=== PATIENT | male | born 1930 | race Caucasian/White ===

== ENCOUNTER 2018-05-22 06:25 | Day surgery (SDC) | payer MEDICARE, BC ==
[2018-05-15 11:01] LABS: HEMATOCRIT 47.4 % (37.9-51.0); MEAN CORPUSCULAR HGB CONC 33.8 g/dL (32.0-36.0); MEAN CORPUSCULAR VOLUME 89 fl (80-97); PLATELET COUNT 195 10^3/uL (150-450); RED BLOOD COUNT 5.33 10^6/uL (4.35-5.55); WHITE BLOOD COUNT 8.4 10^3/uL (4.0-10.5)
[2018-05-15 11:14] LABS: INTERNATIONAL RATION (INR) 1.18; PROTHROMBIN TIME 15.6 SEC (11.4-15.4)
[2018-05-15 11:15] LABS: PARTIAL THROMBOPLASTIN TIME 35.4 SEC (23.5-35.8)
[2018-05-15 11:20] LABS: ALANINE AMINOTRANSFERASE 36 U/L (21-72); ALKALINE PHOSPHATASE 97 U/L (38-126); ANION GAP 8 (5-19); ASPARTATE AMINO TRANSFERASE 27 U/L (17-59); BILIRUBIN,DIRECT 0.3 mg/dL (0.0-0.4); BILIRUBIN,TOTAL 0.8 mg/dL (0.2-1.3); BLOOD UREA NITROGEN 17 mg/dL (7-20); CALCIUM 9.3 mg/dL (8.4-10.2); CARBON DIOXIDE 29 mmol/L (22-30); CHLORIDE 104 mmol/L (98-107); GLUCOSE 100 mg/dL (75-110); POTASSIUM 4.5 mmol/L (3.6-5.0); SODIUM 141.4 mmol/L (137-145); TOTAL PROTEIN 6.8 g/dL (6.3-8.2)
[~2018-05-22 06:25] MED LIST: ACETAMINOPHEN 325 MG TABLET PO PRN; CEFOXITIN SODIUM 2 GM in DEXTROSE 5%-WATER 100 ML IV PRN; LACTATED RINGERS 1000 ML IV PRN; LIDOCAINE 0.5% INJ-PF (5 MG/ML) 50 ML SDV SUBCUT PRN
[2018-05-22] MEDS ORDERED: MIDAZOLAM 2 MG/2 ML INJ ONE (06:32)
[2018-05-22] MEDS ORDERED: FENTANYL CITRATE INJ/PF 100 MCG/2 ML AMPUL ONE (06:32)
[2018-05-22] MEDS ORDERED: PROPOFOL INJ 200 MG/20 ML VIAL IV ONE (06:32)
[2018-05-22] MEDS ORDERED: HYDROMORPHONE HCL INJ/PF 2 MG/ML AMPULE ONE (06:33)
[2018-05-22] MEDS ORDERED: ACETAMINOPHEN 0 MG/0 ML RTUPB IV ONE (06:36)
[2018-05-22] MEDS ORDERED: BUPIVACAINE HCL 0.25 % INJ/PF (2.5 MG/1 ML) 30 ML VIAL ONE (07:11)
[2018-05-22 07:22] LABS: INTERNATIONAL RATION (INR) 1.09; PROTHROMBIN TIME 14.7 SEC (11.4-15.4)
[2018-05-22 07:23] LABS: PARTIAL THROMBOPLASTIN TIME 35.9 SEC (23.5-35.8)
--- NOTE | 2018-05-22 07:36 | EKG REPORT ---
SEVERITY:- ABNORMAL ECG - ATRIAL FIBRILLATION RIGHT BUNDLE BRANCH BLOCK : Confirmed by: Juan Daniel Burnett MD 22-May-2018 07:36:32
[2018-05-22] MEDS ORDERED: FENTANYL CITRATE INJ/PF 100 MCG/2 ML AMPUL IV PRN ×3 (09:18)
[2018-05-22] MEDS ORDERED: DIPHENHYDRAMINE HCL 50 MG/ML VIAL IV PRN (09:18)
[2018-05-22] MEDS ORDERED: PROMETHAZINE HCL INJ 25 MG/1 ML VIAL IV PRN (09:18)
[2018-05-22] MEDS ORDERED: ONDANSETRON HCL INJ/PF 4 MG/2 ML SDV IV PRN (09:18)
--- NOTE | 2018-05-22 09:59 | Operative Report ---
Nonrecallable Operative Report DATE OF SURGERY: 05/22/18 PREOPERATIVE DIAGNOSIS: Symptomatic cholelithiasis. POSTOPERATIVE DIAGNOSIS: Same as above OPERATION: Laparoscopic cholecystectomy SURGEON: HEIDY DE LA ROSA ANESTHESIA: GA TISSUE REMOVED OR ALTERED: Gallbladder COMPLICATIONS: None apparent ESTIMATED BLOOD LOSS: 15 cc PROCEDURE: Drains/implants: Surgicel in the gallbladder fossa. Procedure in detail: After informed consent was obtained, the patient was laid in the supine position. The area of the abdomen was prepped and draped in a normal sterile fashion. A 15 blade scalpel was used to create a supraumbilical incision. This incision was carried through the subcutaneous tissue to the abdominal wall. The cicatrix was identified, grasped with a Svetlana clamp, and retracted upwards. The linea alba fascia was incised sharply. The abdomen was entered sharply. The balloon trocar was inserted, and pneumoperitoneum was achieved. Next, a 5 mm trocar was placed in the subxiphoid position under direct laparoscopic visualization. 2 more 5 mm trochars were placed in the right upper quadrant in similar fashion. Atraumatic graspers were placed through the 5 mm trochars. The gallbladder was retracted cephalad and laterally. Dissection was begun in the triangle of Calot. The cystic duct and cystic artery were fully visualized and skeletonized, seeing the liver through the triangle. The cystic duct and cystic artery were then clipped and cut with laparoscopic instruments, after the critical view of safety was obtained. The gallbladder was removed from the liver using Bovie electrocautery. There was some oozing from the gallbladder bed. This was halted using both electrocautery and Surgicel. The hilum was then inspected. It was found to be free of any leakage of blood or bile. Once this was confirmed, the 5 mm trochars were removed under direct laparoscopic visualization. The infraumbilical trocar was removed, and pneumoperitoneum was relieved. The supraumbilical fascia was closed using 0 Vicryl suture in [id number] fashion. The overlying skin was closed using 4-0 Vicryl Rapide suture in subcuticular fashion. All sponge, instrument, and needle counts were correct 2. Condition: Stable.
--- NOTE | 2018-05-22 10:00 | Discharge Summary ---
Discharge Summary (SDC) - Discharge Final Diagnosis: Symptomatic cholelithiasis Date of Surgery: 05/22/18 Condition: Stable Treatment or Instructions: Okay to shower on Saturday. No tub baths or swimming 2 weeks. Wister 10/325 mg p.o. every 6 hours as needed pain. Referrals: NAIN SALMON MD [Primary Care Provider] - Discharge Diet: As Tolerated Respiratory Treatments at Home: Deep Breathing/Coughing, Incentive Spirometer Discharge Activity: No Lifting Over 10 Pounds Home Care Assistance: None Needed Report the Following to Your Physician Immediately: Shortness of Breath, Nausea , Vomiting, Yellow Skin, Fever over 101 Degrees, Unusual Bleeding, Swelling, Warmth
[2018-05-22] MEDS: FENTANYL CITRATE INJ/PF 100 MCG/2 ML AMPUL ONE ×2 (10:33→10:38)
[2018-05-22] MEDS ORDERED: HYDROCODONE/ACETAMINOPHEN 10-325 MG TABLET ONE (11:47)
[2018-05-22 13:42] VITALS: BP 152/86
[2018-05-22] MEDS ORDERED: SUCCINYLCHOLINE CHLORIDE INJ 200 MG/10 ML VIAL ONE (16:01)
[2018-05-22] MEDS ORDERED: GLYCOPYRROLATE 1 MG/5 ML SYRINGE ONE (16:01)
[2018-05-22] MEDS ORDERED: NEOSTIGMINE METHYLSULFATE 10 MG/10 ML VIAL ONE (16:01)
[2018-05-22] MEDS ORDERED: DEXAMETHASONE SOD PHOSPHATE INJ 4 MG/1 ML VIAL ONE (16:01)
[2018-05-22] MEDS ORDERED: ONDANSETRON HCL INJ/PF 4 MG/2 ML SDV ONE (16:01)
[2018-05-22] MEDS ORDERED: ROCURONIUM BROMIDE INJ 50 MG/5 ML VIAL IV ONE (16:01)
== END 2018-05-22 12:55 | disposition home or self-care (01) ==
LOC: OROUT 06:25
PROVIDERS: ATTEND Surgery
DX: K80.10 Calculus of gallbladder with chronic cholecystitis without obstruction (principal); I10 Essential (primary) hypertension; I48.91 Unspecified atrial fibrillation; K58.1 Irritable bowel syndrome with constipation; Z86.73 Personal history of transient ischemic attack (TIA), and cerebral infarction without residual deficits; Z85.51 Personal history of malignant neoplasm of bladder; Z79.01 Long term (current) use of anticoagulants; Z79.899 Other long term (current) drug therapy
CPT/HCPCS: 36415 ×2; 85027; 85610 ×2; 85730 ×2; 80076; 80048; 88304 ×2; 93005; 93010; 47562; J2250; J3490 ×2; J1100; J0694; J3010; J1170; J0330; J2405; J2704; A9270; 790; J0131

== ENCOUNTER → 2019-01-28 | Outpatient (CLI) | payer MEDICARE, BC ==
[2019-01-28 10:45] LABS: ABSOLUTE BASOPHILS # (AUTO) 0.1 10^3/uL (0.0-0.2); ABSOLUTE EOSINOPHILS # (AUTO) 0.3 10^3/uL (0.0-0.6); ABSOLUTE LYMPHOCYTES (AUTO) 1.6 10^3/uL (0.5-4.7); ABSOLUTE MONOCYTES (AUTO) 0.9 10^3/uL (0.1-1.4); ABSOLUTE NEUT (AUTO) 6.3 10^3/uL (1.7-8.2); BASOPHILS % (AUTO) 0.7 % (0-2); EOSINOPHILS % (AUTO) 3.6 % (0-6); HEMATOCRIT 46.4 % (37.9-51.0); HEMOGLOBIN 15.7 g/dL (13.5-17.0); LYMPHOCYTES % (AUTO) 17.7 % (13-45); MEAN CORPUSCULAR HEMOGLOBIN 30.5 pg (27.0-33.4); MEAN CORPUSCULAR HGB CONC 33.9 g/dL (32.0-36.0); MEAN CORPUSCULAR VOLUME 90 fl (80-97); MONOCYTES % (AUTO) 9.8 % (3-13); PLATELET COUNT 220 10^3/uL (150-450); RED BLOOD COUNT 5.15 10^6/uL (4.35-5.55); RED CELL DISTRIBUTION WIDTH 16.2 % (11.5-14.0); SEGMENTED NEUTROPHILS % (AUTO) 68.2 % (42-78); TOTAL CELLS COUNTED % (AUTO) 100 %; WHITE BLOOD COUNT 9.2 10^3/uL (4.0-10.5)
[2019-01-28 11:56] LABS: ALANINE AMINOTRANSFERASE 35 U/L (21-72); ALBUMIN 4.2 g/dL (3.5-5.0); ALKALINE PHOSPHATASE 102 U/L (38-126); ANION GAP 10 (5-19); ASPARTATE AMINO TRANSFERASE 23 U/L (17-59); BILIRUBIN,DIRECT 0.2 mg/dL (0.0-0.4); BLOOD UREA NITROGEN 17 mg/dL (7-20); CALCIUM 9.2 mg/dL (8.4-10.2); CARBON DIOXIDE 23 mmol/L (22-30); CHLORIDE 103 mmol/L (98-107); CHOLESTEROL 182.95 mg/dL (0-200); GLUCOSE 97 mg/dL (75-110); SODIUM 136.4 mmol/L (137-145); TOTAL PROTEIN 6.9 g/dL (6.3-8.2); TRIGLYCERIDES 93 mg/dL (<150)
[2019-01-28 12:07] LABS: DIRECT LDL 117 mg/dL (<100)
== END ==
LOC: OD 09:45
PROVIDERS: ATTEND Internal Medicine
DX: I48.0 Paroxysmal atrial fibrillation (principal); K21.9 Gastro-esophageal reflux disease without esophagitis; E78.00 Pure hypercholesterolemia, unspecified; Z79.899 Other long term (current) drug therapy
CPT/HCPCS: 36415; 80053; 80061; 85025

== ENCOUNTER → 2019-06-15 | Outpatient (CLI) | payer MEDICARE, BC | LOC: OD 12:37 | PROVIDERS: ATTEND Physician Assistant Medical | DX: I10 Essential (primary) hypertension (principal); R60.9 Edema, unspecified; R11.0 Nausea | CPT/HCPCS: 36415; 84132 ==

== ENCOUNTER → 2019-07-06 | Outpatient (CLI) | payer MEDICARE, BC ==
[2019-07-06 13:23] LABS: ABSOLUTE BASOPHILS # (AUTO) 0.1 10^3/uL (0.0-0.2); ABSOLUTE EOSINOPHILS # (AUTO) 0.3 10^3/uL (0.0-0.6); ABSOLUTE MONOCYTES (AUTO) 0.8 10^3/uL (0.1-1.4); ABSOLUTE NEUT (AUTO) 6.4 10^3/uL (1.7-8.2); BASOPHILS % (AUTO) 0.8 % (0-2); EOSINOPHILS % (AUTO) 2.9 % (0-6); HEMATOCRIT 47.8 % (37.9-51.0); HEMOGLOBIN 16.1 g/dL (13.5-17.0); LYMPHOCYTES % (AUTO) 20.6 % (13-45); MEAN CORPUSCULAR HEMOGLOBIN 28.8 pg (27.0-33.4); MEAN CORPUSCULAR HGB CONC 33.6 g/dL (32.0-36.0); MEAN CORPUSCULAR VOLUME 86 fl (80-97); MONOCYTES % (AUTO) 8.9 % (3-13); PLATELET COUNT 238 10^3/uL (150-450); RED BLOOD COUNT 5.58 10^6/uL (4.35-5.55); RED CELL DISTRIBUTION WIDTH 17.2 % (11.5-14.0); SEGMENTED NEUTROPHILS % (AUTO) 66.8 % (42-78); TOTAL CELLS COUNTED % (AUTO) 100 %; WHITE BLOOD COUNT 9.5 10^3/uL (4.0-10.5)
[2019-07-06 13:51] LABS: ANION GAP 10 (5-19); BLOOD UREA NITROGEN 23 mg/dL (7-20); CALCIUM 9.2 mg/dL (8.4-10.2); CARBON DIOXIDE 24 mmol/L (22-30); CHLORIDE 104 mmol/L (98-107); GLUCOSE 101 mg/dL (75-110); POTASSIUM 4.6 mmol/L (3.6-5.0)
== END ==
LOC: OD 12:51
PROVIDERS: ATTEND Physician Assistant Medical
DX: I10 Essential (primary) hypertension (principal); R60.9 Edema, unspecified; R11.0 Nausea
CPT/HCPCS: 36415; 80048; 85025

== ENCOUNTER 2019-08-25 06:34 | Inpatient (IN) | payer MEDICARE, BC ==
[2019-08-25 06:57] LABS: ABSOLUTE EOSINOPHILS # (AUTO) 0.1 10^3/uL (0.0-0.6); ABSOLUTE LYMPHOCYTES (AUTO) 0.9 10^3/uL (0.5-4.7); ABSOLUTE MONOCYTES (AUTO) 1.2 10^3/uL (0.1-1.4); ABSOLUTE NEUT (AUTO) 9.3 10^3/uL (1.7-8.2); BASOPHILS % (AUTO) 0.4 % (0-2); HEMATOCRIT 45.2 % (37.9-51.0); HEMOGLOBIN 14.9 g/dL (13.5-17.0); LYMPHOCYTES % (AUTO) 7.9 % (13-45); MEAN CORPUSCULAR HEMOGLOBIN 29.7 pg (27.0-33.4); MEAN CORPUSCULAR VOLUME 90 fl (80-97); MONOCYTES % (AUTO) 10.4 % (3-13); PLATELET COUNT 199 10^3/uL (150-450); RED BLOOD COUNT 5.02 10^6/uL (4.35-5.55); RED CELL DISTRIBUTION WIDTH 18.2 % (11.5-14.0); SEGMENTED NEUTROPHILS % (AUTO) 80.3 % (42-78); TOTAL CELLS COUNTED % (AUTO) 100 %; WHITE BLOOD COUNT 11.6 10^3/uL (4.0-10.5)
[2019-08-25 07:21] LABS: ALBUMIN 3.6 g/dL (3.5-5.0); ALKALINE PHOSPHATASE 84 U/L (38-126); ANION GAP 8 (5-19); ASPARTATE AMINO TRANSFERASE 28 U/L (17-59); BILIRUBIN,DIRECT 0.1 mg/dL (0.0-0.4); BLOOD UREA NITROGEN 21 mg/dL (7-20); CARBON DIOXIDE 27 mmol/L (22-30); CHLORIDE 105 mmol/L (98-107); CREATINE KINASE 53 U/L (55-170); GLUCOSE 109 mg/dL (75-110); POTASSIUM 4.8 mmol/L (3.6-5.0); TOTAL PROTEIN 6.5 g/dL (6.3-8.2)
[2019-08-25 07:32] LABS: CREATINE KINASE MB 2.46 ng/mL (<4.55)
[2019-08-25 07:36] LABS: TROPONIN I 0.049 ng/mL
--- NOTE | 2019-08-25 07:54 | EKG REPORT ---
SEVERITY:- ABNORMAL ECG - ATRIAL FIBRILLATION, V-RATE 53-82 RIGHT BUNDLE BRANCH BLOCK : Confirmed by: Juan Daniel Burnett MD 25-Aug-2019 07:53:30
--- NOTE | 2019-08-25 08:08 | ER Document Report ---
ED General - General Chief Complaint: Weakness Stated Complaint: WEAKNESS Time Seen by Provider: 08/25/19 07:50 Primary Care Provider: JASON LEE PA-C [Primary Care Provider] - Follow up as needed TRAVEL OUTSIDE OF THE [place] IN LAST 30 DAYS: No - HPI Notes: Patient is an 89-year-old male who presents to the emergency department for evaluation. Evidently he has been feeling weak. He is states that is been going on for the last few days. Patient's relative in the room states that he was so weak yesterday he could not even stand. He was even changed on the clothing he was wearing yesterday. He denies any pain. He has had some nausea but no vomiting. Normal bowel movement yesterday morning. Denies any fevers or chills. He denies feeling short of breath at this time. Urinating normally. - Related Data Allergies/Adverse Reactions: No Known Allergies Allergy (Verified 08/25/19 06:37) Past Medical History - General Information source: Patient, Relative - Social History Smoking Status: Former Smoker Chew tobacco use (# tins/day): No Frequency of alcohol use: None Drug Abuse: None Family History: Reviewed & Not Pertinent Patient has suicidal ideation: No Patient has homicidal ideation: No - Past Medical History Cardiac Medical History: Reports: Hx Atrial Fibrillation, Hx Hypertension Denies: Hx Coronary Artery Disease, Hx Heart Attack Pulmonary Medical History: Denies: Hx Asthma, Hx Bronchitis, Hx COPD, Hx Pneumonia Neurological Medical History: Reports: Hx Cerebrovascular Accident - SOME LEFT SIDED DEFICITS. Denies: Hx Seizures GI Medical History: Reports: Hx Gastroesophageal Reflux Disease, Hx Hiatal Hernia. Denies: Hx Hepatitis Musculoskeletal Medical History: Reports Hx Arthritis Psychiatric Medical History: Denies: Hx Depression Infectious Medical History: Denies: Hx Hepatitis Past Surgical History: Reports: Hx Cholecystectomy, Hx Genitourinary Surgery, Hx Tonsillectomy. Denies: Hx Open Heart Surgery, Hx Pacemaker - Immunizations Hx Diphtheria, Pertussis, Tetanus Vaccination: Yes Hx Pneumococcal Vaccination: 08/18/12 Review of Systems - Review of Systems Constitutional: See HPI EENT: No symptoms reported Cardiovascular: No symptoms reported Respiratory: No symptoms reported Gastrointestinal: See HPI Genitourinary: No symptoms reported Musculoskeletal: No symptoms reported Skin: No symptoms reported Neurological/Psychological: No symptoms reported Physical Exam - Vital signs Vitals: Temp Pulse Resp BP Pulse Ox 97.7 F 70 26 H 158/90 H 91 L 08/25/19 06:37 08/25/19 06:37 08/25/19 06:37 08/25/19 06:37 08/25/19 06:37 - Notes Notes: This is an 89-year-old male, appears his stated age. He is mildly tachypneic. Vital signs reviewed, please refer to chart. Head is normocephalic, atraumatic. Pupils equal round, reactive to light. Neck is supple without meningismus. Heart is irregularly irregular. Lungs are clear to auscultation bilaterally. Abdomen is soft, nontender, normoactive bowel sounds throughout. Extremities without cyanosis, clubbing. 1+ pitting edema pretibially bilaterally. Posterior calves are nontender. Peripheral pulses are equal. Skin is warm and dry. Patient is awake, alert, oriented x3. Cranial nerves II - XII are grossly intact without focal neurological deficits. Strength is plus 4 out of 5 right upper and lower extremities, 3 out of 5 on the left. Sensation is intact. Reflexes mildly hyperactive on the left. Intact [id number], rapid alternating movements. Course - Re-evaluation Re-evalutation: 08/25/19 12:46 Patient presented to the emergency department for evaluation. On initial assessment he was mildly tachypneic, but his lungs are clear. Multiple laboratory investigations were added, as well as chest x-ray. Chest x-ray was just a portable film, did not show anything acute. His proBNP is elevated at nearly 6000. His work of breathing continue to increase, patient was started on BiPAP. He had significant relief with that. Given his constellation of findings, I do highly suspect CHF as the etiology of his symptoms. His initial troponin was 0.04, I did increase. The patient has remained chest pain-free, and again his symptoms are feeling improved. He is already on a blood thinner. He had a Menendez catheter placed as per patient's daughter's request, as he does have mobility issues secondary to his CVA. I spoke with Dr. Green, then Dr. Barajas, patient will be admitted for further care. - Vital Signs Vital signs: Temp Pulse Resp BP Pulse Ox 97.7 F 70 34 H 150/97 H 98 08/25/19 06:37 08/25/19 06:48 08/25/19 08:30 08/25/19 06:48 08/25/19 08:30 - Laboratory Result Diagrams: 08/25/19 06:40 08/25/19 06:40 Laboratory results interpreted by me: 08/25/19 08/25/19 08/25/19 06:40 06:40 06:40 WBC 11.6 H RDW 18.2 H Lymph % (Auto) 7.9 L Absolute Neuts (auto) 9.3 H Seg Neutrophils % 80.3 H Carbonic Acid ABG pH ABG pCO2 ABG pO2 ABG Total CO2 ABG O2 Saturation BUN 21 H Creatine Kinase 53 L NT-Pro-B Natriuret Pep 5950 H TSH Urine Protein Urine Ascorbic Acid 08/25/19 08/25/19 08/25/19 06:40 09:00 10:55 WBC RDW Lymph % (Auto) Absolute Neuts (auto) Seg Neutrophils % Carbonic Acid 0.93 L ABG pH 7.46 H ABG pCO2 31.0 L ABG pO2 105.4 H ABG Total CO2 22.3 L ABG O2 Saturation 98.1 H BUN Creatine Kinase NT-Pro-B Natriuret Pep TSH 5.80 H Urine Protein 30 H Urine Ascorbic Acid 40 H - Diagnostic Test Radiology reviewed: Image reviewed, Reports reviewed Radiology results interpreted by me: 08/25/19 12:47 Chest X-Ray 08/25/19 07:51 IMPRESSION: Cardiomegaly without a superimposed acute cardiopulmonary process. - EKG Interpretation by Me Additional EKG results interpreted by me: 08/25/19 12:47 Atrial fibrillation with a rate of 67 bpm. Right bundle branch block. No change when compared to prior study. Critical Care Note - Critical Care Note Total time excluding time spent on procedures (mins): 25 Discharge - Discharge Clinical Impression: Congestive heart failure (CHF), Dyspnea Condition: Stable Disposition: ADMITTED INPATIENT Admitting Provider: Karl (Hospitalist) Unit Admitted: IMCU Referrals: JASON LEE PA-C [Primary Care Provider] - Follow up as needed
--- NOTE | 2019-08-25 08:48 | RADIOLOGY REPORT (SQ) ---
EXAM DESCRIPTION: CHEST SINGLE VIEW COMPLETED DATE/TIME: 08/25/2019 8:36 am REASON FOR STUDY: dyspnea on exertion, weakness COMPARISON: AP view of the chest from 10/03/2013. EXAM PARAMETERS: NUMBER OF VIEWS: One view. TECHNIQUE: Single frontal radiographic view of the chest acquired. RADIATION DOSE: NA LIMITATIONS: None. FINDINGS: LUNGS AND PLEURA: Right basilar atelectasis. There is no sizable pleural effusion, consol idation or pneumothorax MEDIASTINUM AND HILAR STRUCTURES: The thoracic aorta is unfolded. HEART AND VASCULAR STRUCTURES: The cardiac silhouette is enlarged. The pulmonary vasculature is with in normal limits. BONES: No acute findings. HARDWARE: None in the chest. OTHER: No other finding. IMPRESSION: Cardiomegaly without a superimposed acute cardiopulmonary process. TECHNICAL DOCUMENTATION: JOB ID: [id number] [employer]- All Rights Reserved Reading location - IP/workstation name: [email or web address]
[2019-08-25 09:21] LABS: ARTERIAL BLOOD BASE EXCESS -1.6 mmol/L; ARTERIAL BLOOD FIO2 2L; ARTERIAL BLOOD H2CO3 0.93 mmol/L (1.05-1.35); ARTERIAL BLOOD HCO3 21.3 mmol/L (20-24); ARTERIAL BLOOD O2 SATURATION 98.1 % (94-98); ARTERIAL BLOOD PH 7.46 (7.35-7.45); ARTERIAL BLOOD PO2 105.4 mmHg (80-100); ARTERIAL BLOOD TOTAL CO2 22.3 mmol/L (23-27)
[2019-08-25] MEDS ORDERED: FUROSEMIDE INJ/PF 20 MG/2 ML SDV IV ONE (10:12)
[2019-08-25 11:50] LABS: APPEARANCE,URINE CLEAR; BILIRUBIN,URINE NEGATIVE (NEGATIVE); COLOR,URINE YELLOW; GLUCOSE, URINE NEGATIVE (NEGATIVE); KETONES,URINE NEGATIVE (NEGATIVE); LEUKOCYTE ESTERASE,URINE NEGATIVE (NEGATIVE); NITRITE,URINE NEGATIVE (NEGATIVE); PROTEIN,URINE 30 mg/dL (NEGATIVE); URINE SPECIFIC GRAVITY 1.012; UROBILINOGEN,URINE NEGATIVE mg/dL (<2.0)
[2019-08-25] MEDS ORDERED: ACETAMINOPHEN 325 MG TABLET PO PRN (15:10)
[2019-08-25] MEDS ORDERED: OXYCODONE-ACETAMINOPHEN 5-325 MG TABLET PO PRN (15:10)
[2019-08-25] MEDS ORDERED: TEMAZEPAM 7.5 MG CAPSULE PO PRN (15:10)
[2019-08-25] MEDS ORDERED: ONDANSETRON HCL INJ/PF 4 MG/2 ML SDV IV PRN (15:10)
[2019-08-25] MEDS ORDERED: (PENDING PHARMACY ID) (Lisinopril [Prinivil 40 Mg Tablet] 20 MG) PO SCH (15:20)
[2019-08-25] MEDS ORDERED: LISINOPRIL 10 MG TABLET PO ONE (15:30)
[2019-08-25] MEDS: LEVALBUTEROL HCL NEB 1.25 MG/3 ML AMPUL NEB SCH ×3 (16:28→23:56)
[2019-08-25] MEDS: AZITHROMYCIN 250 MG TABLET PO SCH (16:28)
--- NOTE | 2019-08-25 16:36 | RADIOLOGY REPORT (SQ) ---
EXAM DESCRIPTION: CTA CHEST COMPLETED DATE/TIME: 08/25/2019 4:17 pm REASON FOR STUDY: acute respiratory failure COMPARISON: None. TECHNIQUE: CT scan of the chest performed using helical scanning technique with dynamic intravenous contrast injection. Images reviewed with lung, soft tissue and bone windows. Reconstructed coronal and sagittal MPR images reviewed. Additional 3 dimensional post-processing performed to develop Maximal Intensity Projection images (VT P). All images stored on PACS. All CT scanners at this facility use dose modulation, iterative reconstruction, and/or weight based d osing when appropriate to reduce radiation dose to as low as reasonably achievable (ALARA). [facility]: Dose Right [facility]: CareDose [facility]: Dose Right [facility]: Teradose 4D [facility]: [email or web address] CONTRAST TYPE AND DOSE: Ccontrast/concentration: Isovue 350.00 mg/ml; Total Contrast Delivered: 71.0 ml; Total Saline Delivered: 68.1 ml Contrast bolus optimized for the pulmonary arteries. Not diagnostic for the aorta. RENAL FUNCTION: Creatinine 1.04 mg / dL. RADIATION DOSE: CT Rad equipment meets quality standard of care and radiation dose reduction techniq ues were employed. CTDIvol: 34.8 - 39.7 mGy. DLP: 1452 mGy-cm. . LIMITATIONS: None. FINDINGS: LUNGS AND PLEURA: The trachea and main bronchi are patent. There is a small right pleural effusion and there are calcified bilateral pleural plaques. The ovoid opacity in the right lower lo be, adjacent to the pleural surface, is nonspecific but could represent an infarct or an area of roun d atelectasis. There is a trace amount of free AORTA AND GREAT VESSELS: Evaluation is limited as the contrast bolus was optimized for evaluation of the pulmonary arteries. There is no thoracic aortic dissection or aneurysmal dilate station. HEART: There is cardiomegaly and mild to moderate atherosclerotic calcification of the coronary arter ies and mitral annulus. There is no pericardial effusion. PULMONARY ARTERIES: There are filling defects within the right and left pulmonary arteries and proxim al segmental branches to the right upper, right lower, right middle, left upper and left lower lobes. The intervertebral a septum is flattened and there is reflux of the contrast into the IVC. HILAR AND MEDIASTINAL STRUCTURES: No mass or adenopathy. HARDWARE: None in the chest. UPPER ABDOMEN: Round hypodense lesion in the posterior inferior aspect of the right hepatic lobe that measures approximately 2.5 cm in diameter. The gallbladder is surgically absent. The spleen is nor mal in size. There is an accessory splenium in the region of the ON. There is no abnormality of the pancreas. There is mild diffuse nodular enlargement of the adrenal glands could represent nodular h yperplasia. THYROID AND OTHER SOFT TISSUES: No masses or adenopathy. 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 3D MIPS: Confirm above findings. OTHER: No other finding. IMPRESSION: 1. Acute bilateral pulmonary emboli that involve both the right and left pulmonary maicol ronna and proximal segmental branches to the right upper, right lower, right middle, and left upper an d left lower lobes. In addition, there is evidence of right heart strain based on the flattened appe arance of the interventricular septum and the reflux of the contrast into the IVC. 2. Ovoid opacity in the right lower lobe, adjacent to the pleural surface is nonspecific and could r epresent an infarct or and area of round atelectasis. Attention on follow-up is recommended. 3. Small right pleural effusion and calcified bilateral pleural plaques COMMENT: This report was called to NISHA CASEY MD at16:20 on 08/25/2019. Quality ID # [id number]: Final reports with documentation of one or more dose reduction techniques (e.g., Au tomated exposure control, adjustment of the mA and/or kV according to patient size, use of iterative reconstruction technique) TECHNICAL DOCUMENTATION: JOB ID: [id number] [employer]- All Rights Reserved Reading location - IP/workstation name: [email or web address]
[2019-08-25 17:40] LABS: ANION GAP 8 (5-19); BLOOD UREA NITROGEN 20 mg/dL (7-20); CALCIUM 8.9 mg/dL (8.4-10.2); CARBON DIOXIDE 28 mmol/L (22-30); CHLORIDE 102 mmol/L (98-107); GLUCOSE 116 mg/dL (75-110); POTASSIUM 4.6 mmol/L (3.6-5.0)
[2019-08-25 17:57] LABS: FREE T3 3.7 pg/mL (2.77-5.27); FREE T4 (FREE THYROXINE) 1.39 ng/dL (0.78-2.19)
[2019-08-25] MEDS ORDERED: CYANOCOBALAMIN 6000 MCG SL SCH (18:00)
[2019-08-25] MEDS ORDERED: APIXABAN 5 MG TABLET PO SCH (18:00)
[2019-08-25] MEDS: ENOXAPARIN SODIUM INJ 120 MG/0.8 ML DISP.SYRIN SUBCUT SCH (18:40)
[2019-08-25] MEDS ORDERED: ENOXAPARIN SODIUM INJ 120 MG/0.8 ML DISP.SYRIN SUBCUT ONE (18:41)
[2019-08-25] MEDS: MEGESTROL ACETATE 20 MG TABLET PO SCH (18:43)
[2019-08-25] MEDS: PANTOPRAZOLE SODIUM 40 MG TABLET.DR PO SCH (18:43)
[2019-08-25] MEDS: DOCUSATE SODIUM 100 MG CAPSULE PO SCH (18:43)
[2019-08-25] MEDS ORDERED: HYDRALAZINE HCL INJ/PF 20 MG/1 ML SDV IV PRN (19:41)
--- NOTE | 2019-08-25 19:55 | PDOC H&P ---
History of Present Illness Admission Date/PCP: 08/25/19 12:54 JASON LEE PA-C History of Present Illness: JAGRUTI SHEPHERD is a 89 year old male PE on Xarelto, hypertension, bladder cancer, right MCA CVA, dyslipidemia, A. fib, brought to ED by family for evaluation of worsening weakness and dyspnea on exertion. As per family for the last 3 days they have noted this patient has getting progressively weak and short of breath on minimal exertion, denies any PND, orthopnea, or lower extremity edema, In ED he was found to be hypoxic, with elevated BNP hospital was started for acute heart failure. Evaluation CTA chest showed bilateral multiple acute pulmonary emboli with right heart strain based on CT findings. Patient denies any cough, fever, chills, nausea, vomiting, diarrhea, co nstipation or any urinary symptoms. Patient has decided for his CODE STATUS to be DNR and daughter and son-in-law who are accompanying him agree with his decision. Patient and family were updated about acute bilateral pulmonary PE and they do not want any transfer at this point as patient is DNR and he may not get any invasive procedures if transfer. They would like to continue medical management at this point. Past Medical History Cardiac Medical History: Reports: Atrial Fibrillation, Hypertension Denies: Coronary Artery Disease, Myocardial Infarction Pulmonary Medical History: Denies: Asthma, Bronchitis, Chronic Obstructive Pulmonary Disease (COPD), Pneumonia Neurological Medical History: Denies: Seizures GI Medical History: Reports: Gastroesophageal Reflux Disease, Hiatal Hernia Denies: Hepatitis Musculoskeltal Medical History: Reports: Arthritis Psychiatric Medical History: Denies: Depression Hematology: Denies: Anemia, Sickle Cell Disease Past Surgical History Past Surgical History: Reports: Cholecystectomy, Tonsillectomy Denies: Pacemaker Social History Smoking Status: Former Smoker Electronic Cigarette use?: No Frequency of Alcohol Use: None Hx Recreational Drug Use: No Hx Prescription Drug Abuse: No Family History Family History: Reviewed & Not Pertinent Parental Family History Reviewed: Yes Children Family History Reviewed: Yes Sibling(s) Family History Reviewed.: Yes Medication/Allergy Home Medications: Apixaban [Eliquis 5 mg Tablet] 5 mg PO BID 02/11/15 Simvastatin 10 mg PO QHS 02/11/15 Cetirizine HCl [Cetirizine HCl 5 mg/5 mL] 5 mg PO BID 08/25/19 Clonidine HCl [Catapres] 0.1 mg PO TIDP PRN 08/25/19 Cyanocobalamin (Vitamin B-12) [B-12] 6,000 mcg SL BID 08/25/19 Esomeprazole Mag Trihydrate [Nexium] 40 mg PO DAILY 08/25/19 Hydralazine HCl [Apresoline 25 mg Tablet] 25 mg PO BID 08/25/19 Lisinopril [Prinivil 40 mg Tablet] 40 mg PO DAILY 08/25/19 Megestrol Acetate [Megace 20 Mg Tablet] 20 mg PO BID 08/25/19 Potassium Gluconate [Potassium] 600 mg PO QID 08/25/19 Promethazine HCl [Phenergan 25 mg Tablet] 25 mg PO ASDIR PRN 08/25/19 Allergies/Adverse Reactions: No Known Allergies Allergy (Verified 08/25/19 06:37) Review of Systems Review of Systems: as per hpi Physical Exam Vital Signs: Temp Pulse Resp BP Pulse Ox 97.7 F 72 15 172/111 H 96 08/25/19 06:37 08/25/19 16:37 08/25/19 19:01 08/25/19 19:01 08/25/19 19:01 Intake & Output 08/24/19 08/25/19 08/26/19 06:59 06:59 06:59 Weight 109.1 kg General appearance: PRESENT: mild distress, obese Head exam: PRESENT: atraumatic, normocephalic Respiratory exam: PRESENT: clear to auscultation jose, symmetrical, tachypnea. ABSENT: rales, rhonchi, wheezes Cardiovascular exam: PRESENT: irregular rhythm. ABSENT: diastolic murmur, rubs, systolic murmur GI/Abdominal exam: PRESENT: normal bowel sounds, soft. ABSENT: distended, guarding, mass, organolmegaly, rebound, tenderness Neurological exam: PRESENT: alert, awake, oriented to person, oriented to place, oriented to time, oriented to situation, CN II-XII grossly intact. ABSENT: motor sensory deficit Results Laboratory Results: 08/25/19 06:40 08/25/19 17:04 08/25/19 08/25/19 08/25/19 06:40 06:40 06:40 WBC 11.6 H RBC 5.02 Hgb 14.9 Hct 45.2 MCV 90 MCH 29.7 MCHC 33.0 RDW 18.2 H Plt Count 199 Seg Neutrophils % 80.3 H Carbonic Acid HCO3/H2CO3 Ratio ABG pH ABG pCO2 ABG pO2 ABG HCO3 ABG O2 Saturation ABG Base Excess FiO2 Sodium 139.8 Potassium 4.8 Chloride 105 Carbon Dioxide 27 Anion Gap 8 BUN 21 H Creatinine 1.04 Est GFR ( Amer) > 60 Glucose 109 Calcium 9.0 Total Bilirubin 1.0 AST 28 Alkaline Phosphatase 84 Total Protein 6.5 Albumin 3.6 TSH 5.80 H Free T4 Free T3 pg/mL Urine Color Urine Appearance Urine pH Ur Specific [place] Urine Protein Urine Glucose (UA) Urine Ketones Urine Blood Urine Nitrite Ur Leukocyte Esterase Urine WBC (Auto) Urine RBC (Auto) 08/25/19 08/25/19 08/25/19 09:00 10:55 17:04 WBC RBC Hgb Hct MCV MCH MCHC RDW Plt Count Seg Neutrophils % Carbonic Acid 0.93 L HCO3/H2CO3 Ratio 22:1 ABG pH 7.46 H ABG pCO2 31.0 L ABG pO2 105.4 H ABG HCO3 21.3 ABG O2 Saturation 98.1 H ABG Base Excess -1.6 FiO2 2L Sodium Potassium Chloride Carbon Dioxide Anion Gap BUN Creatinine Est GFR ( Amer) Glucose Calcium Total Bilirubin AST Alkaline Phosphatase Total Protein Albumin TSH Free T4 1.39 Free T3 pg/mL 3.70 Urine Color YELLOW Urine Appearance CLEAR Urine pH 6.0 Ur Specific [place] 1.012 Urine Protein 30 H Urine Glucose (UA) NEGATIVE Urine Ketones NEGATIVE Urine Blood NEGATIVE Urine Nitrite NEGATIVE Ur Leukocyte Esterase NEGATIVE Urine WBC (Auto) 2 Urine RBC (Auto) 4 08/25/19 17:04 WBC RBC Hgb Hct MCV MCH MCHC RDW Plt Count Seg Neutrophils % Carbonic Acid HCO3/H2CO3 Ratio ABG pH ABG pCO2 ABG pO2 ABG HCO3 ABG O2 Saturation ABG Base Excess FiO2 Sodium 138.2 Potassium 4.6 Chloride 102 Carbon Dioxide 28 Anion Gap 8 BUN 20 Creatinine 1.07 Est GFR ( Amer) > 60 Glucose 116 H Calcium 8.9 Total Bilirubin AST Alkaline Phosphatase Total Protein Albumin TSH Free T4 Free T3 pg/mL Urine Color Urine Appearance Urine pH Ur Specific [place] Urine Protein Urine Glucose (UA) Urine Ketones Urine Blood Urine Nitrite Ur Leukocyte Esterase Urine WBC (Auto) Urine RBC (Auto) 08/25/19 08/25/1919 06:40 06:40 06:40 Creatine Kinase 53 L CK-MB (CK-2) 2.46 Troponin I 0.049 NT-Pro-B Natriuret Pep 5950 H 08/25/19 08/25/19 10:26 17:04 Creatine Kinase CK-MB (CK-2) Troponin I 0.069 0.046 NT-Pro-B Natriuret Pep Impressions: Chest X-Ray 08/25/19 07:51 IMPRESSION: Cardiomegaly without a superimposed acute cardiopulmonary process. Chest/Abdomen CTA 08/25/19 15:21 IMPRESSION: 1. Acute bilateral pulmonary emboli that involve both the right and left pulmonary arteries and proximal segmental branches to the right upper, right lower, right middle, and left upper and left lower lobes. In addition, there is evidence of right heart strain based on the flattened appearance of the interventricular septum and the reflux of the contrast into the IVC. 2. Ovoid opacity in the right lower lobe, adjacent to the pleural surface is nonspecific and could represent an infarct or and area of round atelectasis. Attention on follow-up is recommended. 3. Small right pleural effusion and calcified bilateral pleural plaques Assessment and Plan - Diagnosis (1) Acute pulmonary embolism with acute cor pulmonale Qualifiers: Pulmonary embolism type: unspecified Qualified Code(s): I26.09 - Other pu lmonary embolism with acute cor pulmonale Is this a current diagnosis for this admission?: Yes Plan: History of PE, used to be on Coumadin was switched to Xarelto. Currently on Xarelto 5 mg p.o. twice daily, reports compliance. CTA chest positive for multiple bilateral acute PEs, with possible right heart strain based on CT findings. Patient is DNR, does not want any invasive interventions at this point. Admit to IMCU, monitor vitals, therapeutic dose Lovenox, DC Xarelto, 2D echo. Acute PE in the setting of history of bladder cancer and being on Xarelto. Consult oncology to see if acute PE is related to history of bladder cancer or failure to Xarelto. (2) Acute and chronic respiratory failure with hypoxia Is this a current diagnosis for this admission?: Yes Plan: Due to acute PE and acute CHF. Plan as #1 and #3. (3) Acute congestive heart failure Qualifiers: Heart failure type: combined systolic and diastolic Qualified Code(s): I50.41 - Acute combined systolic (congestive) and diastolic (congestive) heart failure Is this a current diagnosis for this admission?: Yes Plan: Denies any history of CAD, denies any chest pain, mildly elevated troponins likely due to acute PE causing acute CHF. Admit to telemetry, IV Lasix, volume restriction, DARNELL inhibitors, trend troponins, 2D echo. Hold beta-rosamaria due to acute CHF exacerbation, could be restarted tomorrow if stable. (4) History of bladder cancer Is this a current diagnosis for this admission?: Yes Plan: Status post surgery. Not on chemotherapy. Outpatient PCP and oncology follow- up. (5) Hypertension Qualifiers: Hypertension type: essential hypertension Qualified Code(s): I10 - Essential (primary) hypertension Is this a current diagnosis for this admission?: Yes Plan: Not optimized, likely exacerbated due to acute PE and CHF. Continue IV Lasix, DARNELL, IV PRN hydralazine. Adjust meds as needed, follow-up with PCP as outpatient. 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 Weakness. Denies any acute focal neurological deficit. Optimize blood pressure, continue antiplatelets, continue statins.
[2019-08-25] MEDS: SIMVASTATIN 10 MG TABLET PO SCH (22:51)
[2019-08-25] MEDS: FUROSEMIDE INJ/PF 20 MG/2 ML SDV IV SCH (22:52)
[2019-08-26] MEDS: LEVALBUTEROL HCL NEB 1.25 MG/3 ML AMPUL NEB SCH ×6 (04:13→23:54)
[2019-08-26 04:58] LABS: ABSOLUTE BASOPHILS # (AUTO) 0.1 10^3/uL (0.0-0.2); ABSOLUTE EOSINOPHILS # (AUTO) 0.1 10^3/uL (0.0-0.6); ABSOLUTE LYMPHOCYTES (AUTO) 1.3 10^3/uL (0.5-4.7); ABSOLUTE MONOCYTES (AUTO) 1.2 10^3/uL (0.1-1.4); ABSOLUTE NEUT (AUTO) 9.5 10^3/uL (1.7-8.2); BASOPHILS % (AUTO) 0.5 % (0-2); EOSINOPHILS % (AUTO) 1.2 % (0-6); HEMATOCRIT 42.8 % (37.9-51.0); HEMOGLOBIN 14.1 g/dL (13.5-17.0); LYMPHOCYTES % (AUTO) 10.6 % (13-45); MEAN CORPUSCULAR HEMOGLOBIN 29.4 pg (27.0-33.4); MEAN CORPUSCULAR VOLUME 89 fl (80-97); MONOCYTES % (AUTO) 10.1 % (3-13); PLATELET COUNT 207 10^3/uL (150-450); RED BLOOD COUNT 4.81 10^6/uL (4.35-5.55); RED CELL DISTRIBUTION WIDTH 18.1 % (11.5-14.0); SEGMENTED NEUTROPHILS % (AUTO) 77.6 % (42-78); TOTAL CELLS COUNTED % (AUTO) 100 %; WHITE BLOOD COUNT 12.2 10^3/uL (4.0-10.5)
[2019-08-26 05:06] LABS: INTERNATIONAL RATION (INR) 1.29; PROTHROMBIN TIME 16.2 SEC (11.4-15.4)
[2019-08-26] MEDS: PANTOPRAZOLE SODIUM 40 MG TABLET.DR PO SCH ×2 (06:07→16:15)
[2019-08-26 08:26] LABS: APPEARANCE,URINE CLEAR; BILIRUBIN,URINE NEGATIVE (NEGATIVE); COLOR,URINE YELLOW; GLUCOSE, URINE NEGATIVE (NEGATIVE); KETONES,URINE TRACE mg/dL (NEGATIVE); LEUKOCYTE ESTERASE,URINE TRACE (NEGATIVE); NITRITE,URINE NEGATIVE (NEGATIVE); PROTEIN,URINE 30 mg/dL (NEGATIVE); URINE SPECIFIC GRAVITY 1.021; UROBILINOGEN,URINE NEGATIVE mg/dL (<2.0)
--- NOTE | 2019-08-26 10:27 | PDOC CONSULTATION ---
Consultation Consult Date: 08/26/19 Provider Consulted: LETICIA POLLOCK Consult reason:: Hematology/Oncology consultation was requested for patient with history of bladder cancer and new bilateral PE while on Eliquis therapy. History of Present Illness Admission Date/PCP: 08/25/19 12:54 JASON LEE PA-C History of Present Illness: JAGRUTI SHEPHERD is a 89 year old male with a remote history of bladder cancer. He was initially started on coumadin many years ago due to PE as well as chronic A-fib. This was changed to Xarelto, and then Eliquis over a year ago. He states that he has not missed any doses of the Eliquis and has had no bleeding or clotting issues that he is aware of. However, patient presented to the ED with dizziness, weakness and nausea. He denies any chest pain. He has dyspnea on exertion. All symptoms have been getting worse over the last week. He was found in the ED to have new bilateral PEs. His Eliquis has now been stopped and patient was started on Lovenox. Past Medical History Cardiac Medical History: Reports: Atrial Fibrillation, Hypertension Denies: Coronary Artery Disease, Myocardial Infarction Pulmonary Medical History: Denies: Asthma, Bronchitis, Chronic Obstructive Pulmonary Disease (COPD), Pneumonia Neurological Medical History: Denies: Seizures GI Medical History: Reports: Gastroesophageal Reflux Disease, Hiatal Hernia Denies: Hepatitis Musculoskeltal Medical History: Reports: Arthritis Psychiatric Medical History: Denies: Depression Hematology: Denies: Anemia, Sickle Cell Disease Past Surgical History Past Surgical History: Reports: Cholecystectomy, Tonsillectomy Denies: Pacemaker Social History Smoking Status: Unknown if Ever Smoked Electronic Cigarette use?: No Frequency of Alcohol Use: None Hx Recreational Drug Use: No Hx Prescription Drug Abuse: No Past Social History Note: He is , lives with daughter. 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 He has 2 children, and a "bunch of grandchildren." - Advance Directive Resuscitation Status: Do Not Resuscitate Family History Parental Family History Reviewed: Yes - Mother with blood clot. Father with kidney failure. Children Family History Reviewed: No Sibling(s) Family History Reviewed.: Yes - Sister with breast cancer. Medication/Allergy Home Medications: Apixaban [Eliquis 5 mg Tablet] 5 mg PO BID 02/11/15 Simvastatin 10 mg PO QHS 02/11/15 Cetirizine HCl [Cetirizine HCl 5 mg/5 mL] 5 mg PO BID 08/25/19 Clonidine HCl [Catapres] 0.1 mg PO TIDP PRN 08/25/19 Cyanocobalamin (Vitamin B-12) [B-12] 6,000 mcg SL BID 08/25/19 Esomeprazole Mag Trihydrate [Nexium] 40 mg PO DAILY 08/25/19 Hydralazine HCl [Apresoline 25 mg Tablet] 25 mg PO BID 08/25/19 Lisinopril [Prinivil 40 mg Tablet] 40 mg PO DAILY 08/25/19 Megestrol Acetate [Megace 20 Mg Tablet] 20 mg PO BID 08/25/19 Potassium Gluconate [Potassium] 600 mg PO QID 08/25/19 Promethazine HCl [Phenergan 25 mg Tablet] 25 mg PO ASDIR PRN 08/25/19 Allergies/Adverse Reactions: No Known Allergies Allergy (Verified 08/25/19 06:37) Review of Systems Constitutional: ABSENT: fever(s), headache(s) Eyes: ABSENT: visual disturbances Ears: ABSENT: hearing changes Nose, Mouth, and Throat: ABSENT: sore throat Cardiovascular: PRESENT: dyspnea on exertion. ABSENT: chest pain Respiratory: PRESENT: dyspnea Gastrointestinal: PRESENT: nausea. ABSENT: abdominal pain Genitourinary: ABSENT: dysuria, hematuria Musculoskeletal: ABSENT: back pain Integumentary: ABSENT: rash Neurological: PRESENT: dizziness, weakness Hematologic/Lymphatic: ABSENT: easy bleeding Physical Exam Vital Signs: Temp Pulse Resp BP Pulse Ox 97.4 F 80 16 150/93 H 89 L 08/26/19 03:00 08/26/19 07:49 08/26/19 07:49 08/26/19 03:00 08/26/19 07:49 Intake & Output 08/25/19 08/26/19 08/27/19 06:59 06:59 06:59 Output Total 2700 Balance -2700 Weight 109.1 kg 105 kg General appearance: PRESENT: no acute distress, well-developed, well-nourished Head exam: PRESENT: normocephalic Eye exam: PRESENT: EOMI Neck exam: ABSENT: lymphadenopathy, tenderness Respiratory exam: PRESENT: clear to auscultation jose Cardiovascular exam: PRESENT: RRR GI/Abdominal exam: PRESENT: soft. ABSENT: tenderness Extremities exam: PRESENT: other - Patient states his left leg is always bigger than his right since his CVA.. ABSENT: pedal edema Musculoskeletal exam: PRESENT: normal inspection Neurological exam: PRESENT: alert, awake Psychiatric exam: PRESENT: appropriate affect Skin exam: PRESENT: normal color Results Laboratory Results: 08/26/19 03:47 08/25/19 17:04 08/25/19 08/25/19 08/25/19 10:55 17:04 17:04 WBC RBC Hgb Hct MCV MCH MCHC RDW Plt Count Seg Neutrophils % Sodium 138.2 Potassium 4.6 Chloride 102 Carbon Dioxide 28 Anion Gap 8 BUN 20 Creatinine 1.07 Est GFR ( Amer) > 60 Glucose 116 H Calcium 8.9 Free T4 1.39 Free T3 pg/mL 3.70 Urine Color YELLOW Urine Appearance CLEAR Urine pH 6.0 Ur Specific [place] 1.012 Urine Protein 30 H Urine Glucose (UA) NEGATIVE Urine Ketones NEGATIVE Urine Blood NEGATIVE Urine Nitrite NEGATIVE Ur Leukocyte Esterase NEGATIVE Urine WBC (Auto) 2 Urine RBC (Auto) 4 08/26/19 08/26/19 03:47 07:50 WBC 12.2 H RBC 4.81 Hgb 14.1 Hct 42.8 MCV 89 MCH 29.4 MCHC 33.0 RDW 18.1 H Plt Count 207 Seg Neutrophils % 77.6 Sodium Potassium Chloride Carbon Dioxide Anion Gap BUN Creatinine Est GFR ( Amer) Glucose Calcium Free T4 Free T3 pg/mL Urine Color YELLOW Urine Appearance CLEAR Urine pH 6.0 Ur Specific [place] 1.021 Urine Protein 30 H Urine Glucose (UA) NEGATIVE Urine Ketones TRACE H Urine Blood LARGE H Urine Nitrite NEGATIVE Ur Leukocyte Esterase TRACE H Urine WBC (Auto) 17 Urine RBC (Auto) 114 08/25/19 08/25/19 08/25/19 06:40 06:40 06:40 Creatine Kinase 53 L CK-MB (CK-2) 2.46 Troponin I 0.049 NT-Pro-B Natriuret Pep 5950 H 08/25/19 08/25/19 08/25/19 10:26 17:04 21:44 Creatine Kinase CK-MB (CK-2) Troponin I 0.069 0.046 0.037 NT-Pro-B Natriuret Pep 08/26/19 03:47 Creatine Kinase CK-MB (CK-2) Troponin I 0.035 NT-Pro-B Natriuret Pep Impressions: Chest X-Ray 08/25/19 07:51 IMPRESSION: Cardiomegaly without a superimposed acute cardiopulmonary process. Chest/Abdomen CTA 08/25/19 15:21 IMPRESSION: 1. Acute bilateral pulmonary emboli that involve both the right and left pulmonary arteries and proximal segmental branches to the right upper, right lower, right middle, and left upper and left lower lobes. In addition, there is evidence of right heart strain based on the flattened appearance of the interventricular septum and the reflux of the contrast into the IVC. 2. Ovoid opacity in the right lower lobe, adjacent to the pleural surface is nonspecific and could represent an infarct or and area of round atelectasis. Attention on follow-up is recommended. 3. Small right pleural effusion and calcified bilateral pleural plaques Assessment & Plan - Diagnosis (1) Acute pulmonary embolism with acute cor pulmonale Qualifiers: Pulmonary embolism type: unspecified Qualified Code(s): I26.09 - Other pulm onary embolism with acute cor pulmonale Is this a current diagnosis for this admission?: Yes Plan: He has failed Eliquis. Therefore, Xarelto would also not be effective. Choices at this point would be Lovenox or coumadin. He is currently on Lovenox. I will discuss further with him if he would prefer to continue Lovenox at home intermediate designer or transition back to coumadin. Because of his history of blood clots, as well as family history and his failure on Eliquis, I will check Prothrombin gene mutation, Factor V Leiden, and Antiphospholipid antibodies. All other hypercoag work-up is not accurate while on blood thinners. (2) History of bladder cancer Is this a current diagnosis for this admission?: Yes Plan: CT chest and abdomen was performed. However, with his history of bladder cancer and new blood clots, CT with contrast of pelvis should be considered. If he has new evidence of cancer, then this should be addressed. He no longer has a urologist. - Plan Summary Plan Summary: Thank you for this consultation. I will continue to follow him with you.
[2019-08-26] MEDS: MEGESTROL ACETATE 20 MG TABLET PO SCH ×2 (10:55→17:55)
[2019-08-26] MEDS: LISINOPRIL 10 MG TABLET PO SCH (10:55)
[2019-08-26] MEDS: FUROSEMIDE INJ/PF 20 MG/2 ML SDV IV SCH ×2 (10:55→21:40)
[2019-08-26] MEDS: ENOXAPARIN SODIUM INJ 120 MG/0.8 ML DISP.SYRIN SUBCUT SCH ×2 (10:55→21:40)
[2019-08-26] MEDS: AZITHROMYCIN 250 MG TABLET PO SCH (10:55)
[2019-08-26] MEDS: DOCUSATE SODIUM 100 MG CAPSULE PO SCH ×2 (10:55→17:55)
[2019-08-26 14:58] LABS: ANION GAP 12 (5-19); BLOOD UREA NITROGEN 19 mg/dL (7-20); CALCIUM 8.9 mg/dL (8.4-10.2); CARBON DIOXIDE 24 mmol/L (22-30); CHLORIDE 103 mmol/L (98-107); GLUCOSE 177 mg/dL (75-110); POTASSIUM 3.9 mmol/L (3.6-5.0)
[2019-08-26] MEDS ORDERED: SIMETHICONE 80 MG TAB.CHEW PO PRN (15:16)
[2019-08-26] MEDS ORDERED: HYDROCORTISONE ACETATE 25 MG SUPP.RECT PR PRN (15:16)
[2019-08-26] MEDS ORDERED: SIMETHICONE 80 MG TAB.CHEW PO ONE (16:00)
[2019-08-26] MEDS: HYDROCORTISONE ACETATE 25 MG SUPP.RECT PR ONE ×2 (16:15→18:00)
--- NOTE | 2019-08-26 17:41 | PDOC PROGRESS REPORT ---
Subjective Progress Note for:: 08/26/19 Subjective:: The patient is an 89-year-old male with a past medical history of atrial fibrillation, hypertension, hyperlipidemia, PE on Xarelto, right MCA CVA, and bladder cancer who was admitted 08/25/2019 with acute PE and acute cor pulmonale. Patient was seen on morning rounds with his daughter present. He was found resting in bed, comfortably, on supplemental oxygen by nasal cannula at 4 L/min. He is not home O2 dependent. Patient reports continued shortness of breath. He also complains of abdominal discomfort/bloating/gas and hemorrhoid discomfort. He denies fever, chills, chest pain, palpitations, orthopnea, cough, nausea, vomiting, diarrhea. Discussed chronic anticoagulation options as presented by Dr. Agarwal; he had no other questions or concerns at this time. No concerns per nursing. Reason For Visit: ACUTE HYPOXIC,RESPIRATORY FAILURE,ACUTE CONGESTIVE Physical Exam Vital Signs: Temp Pulse Resp BP Pulse Ox 97.5 F 81 16 142/107 H 91 L 08/26/19 11:27 08/26/19 15:50 08/26/19 15:50 08/26/19 11:27 08/26/19 15:50 Intake & Output 08/25/19 08/26/19 08/27/19 06:59 06:59 06:59 Intake Total 360 Output Total 2700 Balance -2700 360 Weight 109.1 kg 105 kg General appearance: PRESENT: no acute distress, cooperative, well-developed, well-nourished - Overweight, other - Fatigued; acutely ill-appearing. Head exam: PRESENT: atraumatic, normocephalic Eye exam: PRESENT: conjunctiva pink, EOMI, PERRLA. ABSENT: scleral icterus Ear exam: PRESENT: normal external ear exam Mouth exam: PRESENT: moist, tongue midline Neck exam: ABSENT: carotid bruit, JVD, lymphadenopathy, thyromegaly Respiratory exam: PRESENT: clear to auscultation jose, symmetrical, unlabored, other - Supplemental oxygen via nasal cannula. ABSENT: rales, rhonchi, wheezes Cardiovascular exam: PRESENT: irregular rhythm, +S1, +S2. ABSENT: diastolic murmur, rubs, systolic murmur Pulses: PRESENT: normal dorsalis pedis pul Vascular exam: PRESENT: normal capillary refill GI/Abdominal exam: PRESENT: distended, hyperactive bowel sounds, soft. ABSENT: guarding, mass, organolmegaly, rebound, tenderness Rectal exam: PRESENT: deferred Extremities exam: PRESENT: full ROM. ABSENT: calf tenderness, clubbing, pedal edema Neurological exam: PRESENT: alert, awake, oriented to person, oriented to place, oriented to time, oriented to situation, CN II-XII grossly intact. ABSENT: motor sensory deficit Psychiatric exam: PRESENT: appropriate affect, normal mood. ABSENT: homicidal ideation, suicidal ideation Skin exam: PRESENT: dry, intact, warm. ABSENT: cyanosis, rash Results Laboratory Results: 08/26/19 03:47 08/26/19 14:23 08/25/19 08/25/19 08/26/19 17:04 17:04 03:47 WBC 12.2 H RBC 4.81 Hgb 14.1 Hct 42.8 MCV 89 MCH 29.4 MCHC 33.0 RDW 18.1 H Plt Count 207 Seg Neutrophils % 77.6 Sodium 138.2 Potassium 4.6 Chloride 102 Carbon Dioxide 28 Anion Gap 8 BUN 20 Creatinine 1.07 Est GFR ( Amer) > 60 Glucose 116 H Calcium 8.9 Free T4 1.39 Free T3 pg/mL 3.70 Urine Color Urine Appearance Urine pH Ur Specific [place] Urine Protein Urine Glucose (UA) Urine Ketones Urine Blood Urine Nitrite Ur Leukocyte Esterase Urine WBC (Auto) Urine RBC (Auto) 08/26/19 08/26/19 07:50 14:23 WBC RBC Hgb Hct MCV MCH MCHC RDW Plt Count Seg Neutrophils % Sodium 138.5 Potassium 3.9 Chloride 103 Carbon Dioxide 24 Anion Gap 12 BUN 19 Creatinine 0.99 Est GFR ( Amer) > 60 Glucose 177 H Calcium 8.9 Free T4 Free T3 pg/mL Urine Color YELLOW Urine Appearance CLEAR Urine pH 6.0 Ur Specific [place] 1.021 Urine Protein 30 H Urine Glucose (UA) NEGATIVE Urine Ketones TRACE H Urine Blood LARGE H Urine Nitrite NEGATIVE Ur Leukocyte Esterase TRACE H Urine WBC (Auto) 17 Urine RBC (Auto) 114 08/25/19 08/25/19 08/25/19 06:40 06:40 06:40 Creatine Kinase 53 L CK-MB (CK-2) 2.46 Troponin I 0.049 NT-Pro-B Natriuret Pep 5950 H 08/25/19 08/25/19 08/25/19 10:26 17:04 21:44 Creatine Kinase CK-MB (CK-2) Troponin I 0.069 0.046 0.037 NT-Pro-B Natriuret Pep 08/26/19 03:47 Creatine Kinase CK-MB (CK-2) Troponin I 0.035 NT-Pro-B Natriuret Pep Impressions: Chest X-Ray 08/25/19 07:51 IMPRESSION: Cardiomegaly without a superimposed acute cardiopulmonary process. Chest/Abdomen CTA 08/25/19 15:21 IMPRESSION: 1. Acute bilateral pulmonary emboli that involve both the right and left pulmonary arteries and proximal segmental branches to the right upper, right lower, right middle, and left upper and left lower lobes. In addition, there is evidence of right heart strain based on the flattened appearance of the interventricular septum and the reflux of the contrast into the IVC. 2. Ovoid opacity in the right lower lobe, adjacent to the pleural surface is nonspecific and could represent an infarct or and area of round atelectasis. Attention on follow-up is recommended. 3. Small right pleural effusion and calcified bilateral pleural plaques Assessment and Plan - Diagnosis (1) Acute respiratory failure with hypoxia Is this a current diagnosis for this admission?: Yes Plan: Secondary to acute pulmonary embolus with cor pulmonale. Continue supplemental oxygen as needed to maintain saturations greater than 90%. As needed nebulizer treatments. Pulmonary toilet. (2) Acute pulmonary embolism with acute cor pulmonale Qualifiers: Pulmonary embolism type: unspecified Qualified Code(s): I26.09 - Other pulmonary embolism with acute cor pulmonale Is this a current diagnosis for this admission?: Yes Plan: History of PE, used to be on Coumadin was switched to Xarelto 5 mg BID; reports compliance. CTA chest positive for multiple bilateral acute PEs, with possible right heart strain based on CT findings. Echocardiogram pending. Patient is DNR, does not want any invasive interventions at this point. Admit to [facility] on continuous cardiac telemetry. Therapeutic dose Lovenox Supplemental oxygen as needed to maintain saturations greater than 89%. Patient currently requiring 4 L/min; not home O2 dependent. Will need to wean oxygen if to be discharged to home. Acute PE in the setting of history of bladder cancer and being on Xarelto. Oncology was consulted; appreciate their evaluation and recommendations for chronic anticoagulation. Discussed possible transfer for evaluation for EKOS procedure. Patient and family decline at this time; requesting conservative medication management only. Discharge planning is consulted. (3) Acute congestive heart failure Qualifiers: Heart failure type: combined systolic and diastolic Qualified Code(s): I50.41 - Acute combined systolic (congestive) and diastolic (congestive) heart failure Is this a current diagnosis for this admission?: Yes Plan: Denies any history of CAD, denies any chest pain, mildly elevated troponins likely due to acute PE causing acute CHF. Troponins trended down; no longer following. Echocardiogram completed; formal report pending. Admit to telemetry, IV Lasix, volume restriction Resume home dose lisinopril and hydralazine for blood pressure control. Consider initiating beta-rosamaria prior to discharge once acute heart failure has stabilized. Daily weights, strict I&O's (4) Hypertension Qualifiers: Hypertension type: essential hypertension Qualified Code(s): I10 - Essential (primary) hypertension Is this a current diagnosis for this admission?: Yes Plan: Not optimized, likely exacerbated due to acute PE and CHF. Continue IV Lasix Continue home dose lisinopril. Resume home dose hydralazine. IV PRN hydralazine. Adjust meds as needed, follow-up with PCP as outpatient. Cardiac diet. (5) Hemorrhoids Qualifiers: Hemorrhoid type: unspecified Qualified Code(s): K64.9 - Unspecified hemorrhoids Is this a current diagnosis for this admission?: Yes Plan: Patient reports history of internal hemorrhoids; reports discomfort today. Anusol suppositories Colace BID. (6) History of bladder cancer Is this a current diagnosis for this admission?: Yes Plan: Status post surgery. Not on chemotherapy. Outpatient PCP and oncology follow-up. 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 Denies any acute focal neurological deficit. Optimize blood pressure, continue antiplatelets, continue statins. Cardiac diet. PT/OT consultation. - Time Time Spent with patient: 25-34 minutes Medications reviewed and adjusted accordingly: Yes Anticipated discharge: Home with Homehealth Within: within 72 hours
[2019-08-26] MEDS: HYDRALAZINE HCL 25 MG TABLET PO SCH (17:55)
[2019-08-26] MEDS: SIMVASTATIN 10 MG TABLET PO SCH (21:40)
[2019-08-27] MEDS: LEVALBUTEROL HCL NEB 1.25 MG/3 ML AMPUL NEB SCH ×5 (04:16→19:52)
[2019-08-27] MEDS: PANTOPRAZOLE SODIUM 40 MG TABLET.DR PO SCH ×2 (05:44→18:03)
[2019-08-27] MEDS: HYDRALAZINE HCL 25 MG TABLET PO SCH ×2 (05:44→18:03)
[2019-08-27 06:13] LABS: ABSOLUTE BASOPHILS # (AUTO) 0.1 10^3/uL (0.0-0.2); ABSOLUTE EOSINOPHILS # (AUTO) 0.1 10^3/uL (0.0-0.6); ABSOLUTE LYMPHOCYTES (AUTO) 1.3 10^3/uL (0.5-4.7); ABSOLUTE MONOCYTES (AUTO) 1.1 10^3/uL (0.1-1.4); ABSOLUTE NEUT (AUTO) 8.8 10^3/uL (1.7-8.2); BASOPHILS % (AUTO) 0.5 % (0-2); EOSINOPHILS % (AUTO) 1.1 % (0-6); HEMATOCRIT 43.3 % (37.9-51.0); HEMOGLOBIN 14.3 g/dL (13.5-17.0); MEAN CORPUSCULAR HEMOGLOBIN 29.4 pg (27.0-33.4); MEAN CORPUSCULAR VOLUME 89 fl (80-97); MONOCYTES % (AUTO) 9.9 % (3-13); PLATELET COUNT 214 10^3/uL (150-450); RED BLOOD COUNT 4.85 10^6/uL (4.35-5.55); RED CELL DISTRIBUTION WIDTH 17.9 % (11.5-14.0); SEGMENTED NEUTROPHILS % (AUTO) 77.5 % (42-78); TOTAL CELLS COUNTED % (AUTO) 100 %; WHITE BLOOD COUNT 11.4 10^3/uL (4.0-10.5)
[2019-08-27 06:37] LABS: ANION GAP 10 (5-19); BLOOD UREA NITROGEN 19 mg/dL (7-20); CALCIUM 8.9 mg/dL (8.4-10.2); CARBON DIOXIDE 26 mmol/L (22-30); CHLORIDE 104 mmol/L (98-107); GLUCOSE 107 mg/dL (75-110); POTASSIUM 3.7 mmol/L (3.6-5.0)
[2019-08-27] MEDS: AZITHROMYCIN 250 MG TABLET PO SCH (10:38)
[2019-08-27] MEDS: DOCUSATE SODIUM 100 MG CAPSULE PO SCH ×2 (10:38→18:03)
[2019-08-27] MEDS: LISINOPRIL 10 MG TABLET PO SCH (10:38)
[2019-08-27] MEDS: CARVEDILOL 6.25 MG TABLET PO SCH ×2 (10:38→22:35)
[2019-08-27] MEDS: MEGESTROL ACETATE 20 MG TABLET PO SCH ×2 (10:39→18:03)
[2019-08-27] MEDS: ENOXAPARIN SODIUM INJ 120 MG/0.8 ML DISP.SYRIN SUBCUT SCH ×2 (10:39→22:35)
[2019-08-27] MEDS ORDERED: MAGNESIUM HYDROXIDE SUSP 30 ML UDCUP PO PRN (11:28)
[2019-08-27] MEDS: FUROSEMIDE INJ/PF 20 MG/2 ML SDV IV SCH ×2 (13:04→22:35)
--- NOTE | 2019-08-27 15:14 | PDOC PROGRESS REPORT ---
Subjective Progress Note for:: 08/27/19 Subjective:: The patient is an 89-year-old male with a past medical history of atrial fibrillation, hypertension, hyperlipidemia, PE on Xarelto, right MCA CVA, and bladder cancer who was admitted 08/25/2019 with acute PE and acute cor pulmonale. Patient was seen on morning rounds. He was found resting in bed, comfortably, on supplemental oxygen by nasal cannula at 3 lpm; he is noted to have decreased work of breathing today as compared to yesterday morning. He is not home O2 dependent. Patient reports continued shortness of breath; worsens with minimal activity. He denies fever, chills, chest pain, palpitations, orthopnea, cough, nausea, vomiting, diarrhea. Abdominal and hemorrhoid discomfort much improved today. He has no other questions or concerns at this time. No concerns per nursing. Reason For Visit: ACUTE HYPOXIC,RESPIRATORY FAILURE,ACUTE CONGESTIVE Physical Exam Vital Signs: Temp Pulse Resp BP Pulse Ox 97.7 F 66 17 135/90 H 94 08/27/19 13:38 08/27/19 14:00 08/27/19 13:38 08/27/19 13:38 08/27/19 13:38 Intake & Output 08/26/19 08/27/19 08/28/19 06:59 06:59 06:59 Intake Total 770 360 Output Total 2700 800 Balance -2700 -30 360 Weight 105 kg 101 kg General appearance: PRESENT: no acute distress, cooperative, well-developed, well-nourished - Overweight Head exam: PRESENT: atraumatic, normocephalic Eye exam: PRESENT: conjunctiva pink, EOMI, PERRLA. ABSENT: scleral icterus Ear exam: PRESENT: normal external ear exam Mouth exam: PRESENT: moist, tongue midline Neck exam: ABSENT: carotid bruit, JVD, lymphadenopathy, thyromegaly Respiratory exam: PRESENT: clear to auscultation jose, symmetrical, unlabored, other - Supplemental oxygen via nasal cannula. ABSENT: rales, rhonchi, wheezes Cardiovascular exam: PRESENT: irregular rhythm, +S1, +S2. ABSENT: diastolic murmur, rubs, systolic murmur Pulses: PRESENT: normal dorsalis pedis pul Vascular exam: PRESENT: normal capillary refill GI/Abdominal exam: PRESENT: normal bowel sounds, soft. ABSENT: distended, guarding, mass, organolmegaly, rebound, tenderness Rectal exam: PRESENT: deferred Extremities exam: PRESENT: full ROM. ABSENT: calf tenderness, clubbing, pedal edema Neurological exam: PRESENT: alert, awake, oriented to person, oriented to place, oriented to time, oriented to situation, CN II-XII grossly intact. ABSENT: motor sensory deficit Psychiatric exam: PRESENT: appropriate affect, normal mood. ABSENT: homicidal ideation, suicidal ideation Skin exam: PRESENT: dry, intact, warm. ABSENT: cyanosis, rash Results Laboratory Results: 08/27/19 05:33 08/27/19 05:33 08/27/19 08/27/19 05:33 05:33 WBC 11.4 H RBC 4.85 Hgb 14.3 Hct 43.3 MCV 89 MCH 29.4 MCHC 33.0 RDW 17.9 H Plt Count 214 Seg Neutrophils % 77.5 Sodium 139.6 Potassium 3.7 Chloride 104 Carbon Dioxide 26 Anion Gap 10 BUN 19 Creatinine 1.01 Est GFR ( Amer) > 60 Glucose 107 Calcium 8.9 08/25/19 08/25/19 08/25/19 06:40 06:40 06:40 Creatine Kinase 53 L CK-MB (CK-2) 2.46 Troponin I 0.049 NT-Pro-B Natriuret Pep 5950 H 08/25/19 08/25/19 08/25/19 10:26 17:04 21:44 Creatine Kinase CK-MB (CK-2) Troponin I 0.069 0.046 0.037 NT-Pro-B Natriuret Pep 08/26/19 08/27/19 03:47 05:33 Creatine Kinase CK-MB (CK-2) Troponin I 0.035 NT-Pro-B Natriuret Pep 4120 H Impressions: Chest X-Ray 08/25/19 07:51 IMPRESSION: Cardiomegaly without a superimposed acute cardiopulmonary process. Chest/Abdomen CTA 08/25/19 15:21 IMPRESSION: 1. Acute bilateral pulmonary emboli that involve both the right a nd left pulmonary arteries and proximal segmental branches to the right upper, right lower, right middle, and left upper and left lower lobes. In addition, there is evidence of right heart strain based on the flattened appearance of the interventricular septum and the reflux of the contrast into the IVC. 2. Ovoid opacity in the right lower lobe, adjacent to the pleural surface is nonspecific and could represent an infarct or and area of round atelectasis. Attention on follow-up is recommended. 3. Small right pleural effusion and calcified bilateral pleural plaques Assessment and Plan - Diagnosis (1) Acute respiratory failure with hypoxia Is this a current diagnosis for this admission?: Yes Plan: Slight improvement today; have been able to wean oxygen to 2 L/min while [facility]. Secondary to acute pulmonary embolus with cor pulmonale. Continue supplemental oxygen as needed to maintain saturations greater than 90%. As needed nebulizer treatments. Pulmonary toilet. (2) Acute pulmonary embolism with acute cor pulmonale Qualifiers: Pulmonary embolism type: unspecified Qualified Code(s): I26.09 - Other pulmonary embolism with acute cor pulmonale Is this a current diagnosis for this admission?: Yes Plan: History of PE, used to be on Coumadin was switched to Xarelto 5 mg BID; reports compliance. CTA chest positive for multiple bilateral acute PEs, with possible right heart strain based on CT findings. Echocardiogram pending. Patient is DNR, does not want any invasive interventions at this point. Admit to [facility] on continuous cardiac telemetry. Therapeutic dose Lovenox Supplemental oxygen as needed to maintain saturations greater than 89%. Patient currently requiring 2 L/min; not home O2 dependent. Will need to wean oxygen if to be discharged to home. Acute PE in the setting of history of bladder cancer and being on Xarelto. On cology was consulted; appreciate their evaluation and recommendations for chronic anticoagulation. Discussed possible transfer for evaluation for EKOS procedure yesterday. Patient and family decline at this time; requesting conservative medication management only. Discharge planning is consulted. (3) Acute congestive heart failure Qualifiers: Heart failure type: combined systolic and diastolic Qualified Code(s): I50.41 - Acute combined systolic (congestive) and diastolic (congestive) heart failure Is this a current diagnosis for this admission?: Yes Plan: Denies any history of CAD, denies any chest pain, mildly elevated troponins likely due to acute PE causing acute CHF. Troponins trended down; no longer following. proBNP trending down. Echocardiogram completed; formal report pending. Admit to telemetry, volume restriction Continue home dose lisinopril and hydralazine for blood pressure control. Start carvedilol 6.25 mg twice daily. Overweight transition from IV to oral furosemide. Daily weights, strict I&O's (4) Hypertension Qualifiers: Hypertension type: essential hypertension Qualified Code(s): I10 - Essential (primary) hypertension Is this a current diagnosis for this admission?: Yes Plan: Improved; 135/90 Continue home dose lisinopril and hydralazine. Start Carvedilol twice daily. IV PRN hydralazine. Adjust meds as needed, follow-up with PCP as outpatient. Cardiac diet. (5) Hemorrhoids Qualifiers: Hemorrhoid type: unspecified Qualified Code(s): K64.9 - Unspecified hemorrhoids Is this a current diagnosis for this admission?: Yes Plan: Patient reports history of internal hemorrhoids; improved comfort today. Anusol suppositories bid prn Colace BID. (6) History of bladder cancer Is this a current diagnosis for this admission?: Yes Plan: Status post surgery. Not on chemotherapy. Outpatient PCP and oncology follow-up. 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 Denies any acute focal neurological deficit. Optimize blood pressure, continue antiplatelets, continue statins. Cardiac diet. PT/OT consultation. - Time Time Spent with patient: 15-24 minutes Anticipated discharge: Home with Homehealth Within: within 48 hours - pending oxygen weaning
--- NOTE | 2019-08-27 22:31 | XCELERA REPORT ---
[address] [address] Transthoracic Echocardiogram Report Name: JAGRUTI SHEPHERD Age: 89 yrs Gender: Male : 1930 Patient Status: Inpatient Patient Location: [place] [address]^A Study Date: 08/25/2019 05:32 PM Height: 74 in Weight: 240 lb BSA: 2.3 m2 Procedure: A two-dimensional transthoracic echocardiogram with color flow and Doppler was performed. The study was technically difficult with many images being suboptimal in quality. Reason For Study: acute CHF History: acute CHF. Ordering Physician: NISHA CASEY Performed By: Denita Delgado Interpretation Summary The left ventricle is normal in size. There is normal left ventricular wall thickness. LV EF is 60% The left ventricular ejection fraction is within normal limits. Cannot assess for ASD ,VSD or PFO The right ventricle is moderately dilated. The right ventricle is not well visualized secondary to technical limitations The right ventricular systolic function is mild to moderately reduced. The right atrium is mild to moderately dilated. The left atrium is moderately dilated. There is no mitral valve stenosis. There is a moderate amount of mitral regurgitation There is no evidence of mitral valve prolapse. There is no vegetation seen on the mitral valve. There is no aortic valvular vegetation. There is no aortic valve stenosis There is aortic sclerosis without aortic stenosis. There is no LVOT obstruction. No aortic regurgitation is present. There is no tricuspid stenosis. There is a mild to moderate amount of tricuspid regurgitation There is servere pulmonary hypertension by echo RVSP is 71 to 76 mm of HG , with RA mean of 5 to 10. The pulmonic valve is not well visualized. There is no pulmonic valvular stenosis. There is no pulmonic valvular regurgitation. The aortic root is normal size. The inferior vena cava appeared normal and decreased > 50% with respiration (RAP 5-10 mmHg) There is minimal pericadial effusion behind the RA. There are no echocardiographic or Doppler indications for cardiac tamponade MMode/2D Measurements & Calculations RVDd: 2.6 cm LVIDd: 3.5 cm FS: 24.6 % Ao root diam: 3.1 cm IVSd: 1.1 cm LVIDs: 2.6 cm EDV(Teich): Ao root area: LVPWd: 0.96 cm 51.2 ml 7.3 cm2 ESV(Teich): LA dimension: 3.5 cm 25.8 ml EF(Teich): 49.7 % LVLd ap4: 5.8 cm SV(MOD-sp4): EDV(MOD-sp4): 30.0 ml 43.0 ml LVLs ap4: 4.9 cm ESV(MOD-sp4): 13.0 ml EF(MOD-sp4): 69.8 % Doppler Measurements & Calculations MV E max keila: MV P1/2t max keila: Ao V2 max: LV V1 max P.8 cm/sec 120.8 cm/sec 165.6 cm/sec 4.1 mmHg MV P1/2t: 40.7 msec Ao max PG: LV V1 max: MVA(P1/2t): 5.4 cm2 11.0 mmHg 101.7 cm/sec MV dec slope: 869.8 cm/sec2 MV dec time: 0.19 sec TV V2 max: PA V2 max: TR max keila: MV P1/2t-pr_phl: 433.5 cm/sec 100.4 cm/sec 407.2 cm/sec 40.7 msec TV max PG: PA max P.0 mmHg TR max P.2 mmHg 66.3 mmHg Left Ventricle The left ventricle is normal in size. There is normal left ventricular wall thickness. LV EF is 60%. The left ventricular ejection fraction is within normal limits. LV diastolic function could not be adequately assessed due to atrial fibrilation. The left ventricular wall motion is normal. Cannot assess for ASD ,VSD or PFO. Right Ventricle The right ventricle is moderately dilated. The right ventricle is not well visualized secondary to technical limitations. The right ventricular systolic function is mild to moderately reduced. Atria The right atrium is mild to moderately dilated. The left atrium is moderately dilated. Mitral Valve There is no evidence of mitral valve prolapse. There is no vegetation seen on the mitral valve. There is no mitral valve stenosis. There is a moderate amount of mitral regurgitation. Aortic Valve There is no aortic valvular vegetation. There is no aortic valve stenosis. There is aortic sclerosis without aortic stenosis. There is no LVOT obstruction. No aortic regurgitation is present. Tricuspid Valve There is no tricuspid stenosis. There is a mild to moderate amount of tricuspid regurgitation. There is servere pulmonary hypertension by echo. RVSP is 71 to 76 mm of HG , with RA mean of 5 to 10. Pulmonic Valve The pulmonic valve is not well visualized. There is no pulmonic valvular stenosis. There is no pulmonic valvular regurgitation. Great Vessels The aortic root is normal size. The inferior vena cava appeared normal and decreased > 50% with respiration (RAP 5-10 mmHg). Effusions There is minimal pericadial effusion behind the RA. There are no echocardiographic or Doppler indications for cardiac tamponade. : NISHA CASEY Lakshmi
[2019-08-27] MEDS: SIMVASTATIN 10 MG TABLET PO SCH (22:35)
[2019-08-28] MEDS: LEVALBUTEROL HCL NEB 1.25 MG/3 ML AMPUL NEB SCH ×5 (00:11→15:36)
[2019-08-28 05:53] LABS: ABSOLUTE BASOPHILS # (AUTO) 0.1 10^3/uL (0.0-0.2); ABSOLUTE EOSINOPHILS # (AUTO) 0.2 10^3/uL (0.0-0.6); ABSOLUTE LYMPHOCYTES (AUTO) 1.5 10^3/uL (0.5-4.7); ABSOLUTE NEUT (AUTO) 8.5 10^3/uL (1.7-8.2); BASOPHILS % (AUTO) 0.8 % (0-2); EOSINOPHILS % (AUTO) 1.7 % (0-6); HEMATOCRIT 42.4 % (37.9-51.0); LYMPHOCYTES % (AUTO) 13.2 % (13-45); MEAN CORPUSCULAR HEMOGLOBIN 29.6 pg (27.0-33.4); MEAN CORPUSCULAR HGB CONC 33.1 g/dL (32.0-36.0); MEAN CORPUSCULAR VOLUME 89 fl (80-97); MONOCYTES % (AUTO) 9.2 % (3-13); PLATELET COUNT 230 10^3/uL (150-450); RED BLOOD COUNT 4.75 10^6/uL (4.35-5.55); RED CELL DISTRIBUTION WIDTH 17.8 % (11.5-14.0); SEGMENTED NEUTROPHILS % (AUTO) 75.1 % (42-78); TOTAL CELLS COUNTED % (AUTO) 100 %; WHITE BLOOD COUNT 11.3 10^3/uL (4.0-10.5)
[2019-08-28] MEDS: PANTOPRAZOLE SODIUM 40 MG TABLET.DR PO SCH ×2 (06:03→18:59)
[2019-08-28] MEDS: HYDRALAZINE HCL 25 MG TABLET PO SCH ×2 (06:03→18:59)
[2019-08-28 06:54] LABS: APPEARANCE,URINE CLEAR; BILIRUBIN,URINE NEGATIVE (NEGATIVE); COLOR,URINE YELLOW; GLUCOSE, URINE NEGATIVE (NEGATIVE); KETONES,URINE NEGATIVE (NEGATIVE); LEUKOCYTE ESTERASE,URINE NEGATIVE (NEGATIVE); NITRITE,URINE NEGATIVE (NEGATIVE); PROTEIN,URINE 30 mg/dL (NEGATIVE); UROBILINOGEN,URINE NEGATIVE mg/dL (<2.0)
--- NOTE | 2019-08-28 08:51 | PDOC PROGRESS REPORT ---
Subjective Progress Note for:: 08/28/19 Subjective:: Patient hard of hearing, but has no new complaints. He states that his vision is very poor and often needs help due to this. ROS: breathing improved. No nausea. Reason For Visit: ACUTE HYPOXIC,RESPIRATORY FAILURE,ACUTE CONGESTIVE Physical Exam Vital Signs: Temp Pulse Resp BP Pulse Ox 97.3 F 66 16 138/87 H 93 08/27/19 15:09 08/28/19 03:57 08/28/19 03:57 08/27/19 15:09 08/28/19 03:57 Intake & Output 08/27/19 08/28/19 08/29/19 06:59 06:59 06:59 Intake Total 770 840 Output Total 800 550 Balance -30 290 Weight 101 kg General appearance: PRESENT: no acute distress Head exam: PRESENT: normocephalic Respiratory exam: PRESENT: prolonged expiratory phas Extremities exam: ABSENT: pedal edema Neurological exam: PRESENT: alert, awake Psychiatric exam: PRESENT: appropriate affect Skin exam: PRESENT: normal color Results Laboratory Results: 08/28/19 04:32 08/27/19 05:33 08/28/19 08/28/19 04:32 06:20 WBC 11.3 H RBC 4.75 Hgb 14.0 Hct 42.4 MCV 89 MCH 29.6 MCHC 33.1 RDW 17.8 H Plt Count 230 Seg Neutrophils % 75.1 Urine Color YELLOW Urine Appearance CLEAR Urine pH 5.0 Ur Specific Lyndon 1.020 Urine Protein 30 H Urine Glucose (UA) NEGATIVE Urine Ketones NEGATIVE Urine Blood NEGATIVE Urine Nitrite NEGATIVE Ur Leukocyte Esterase NEGATIVE Urine WBC (Auto) 11 Urine RBC (Auto) 4 08/25/19 08/25/19 08/25/19 06:40 06:40 06:40 Creatine Kinase 53 L CK-MB (CK-2) 2.46 Troponin I 0.049 NT-Pro-B Natriuret Pep 5950 H 08/25/19 08/25/19 08/25/19 10:26 17:04 21:44 Creatine Kinase CK-MB (CK-2) Troponin I 0.069 0.046 0.037 NT-Pro-B Natriuret Pep 08/26/19 08/27/19 03:47 05:33 Creatine Kinase CK-MB (CK-2) Troponin I 0.035 NT-Pro-B Natriuret Pep 4120 H Impressions: Chest X-Ray 08/25/19 07:51 IMPRESSION: Cardiomegaly without a superimposed acute cardiopulmonary process. Chest/Abdomen CTA 08/25/19 15:21 IMPRESSION: 1. Acute bilateral pulmonary emboli that involve both the right and left pulmonary arteries and proximal segmental branches to the right upper, right lower, right middle, and left upper and left lower lobes. In addition, there is evidence of right heart strain based on the flattened appearance of the interventricular septum and the reflux of the contrast into the IVC. 2. Ovoid opacity in the right lower lobe, adjacent to the pleural surface is nonspecific and could represent an infarct or and area of round atelectasis. Attention on follow-up is recommended. 3. Small right pleural effusion and calcified bilateral pleural plaques Assessment & Plan - Diagnosis (1) Acute pulmonary embolism with acute cor pulmonale Qualifiers: Pulmonary embolism type: unspecified Qualified Code(s): I26.09 - Other pulmonary embolism with acute cor pulmonale Is this a current diagnosis for this admission?: Yes Plan: Failed Eliquis/Xarelto. We discussed continuing Lovenox assisted vs. transition to coumadin. Patient would prefer to remain on Lovenox. He should continue 1 mg/kg SC BID indefinitely. Daughter should be taught administration of injections. (2) History of bladder cancer Is this a current diagnosis for this admission?: Yes Plan: I will be happy to follow him as outpatient. - Time Time Spent with patient: Less than 15 minutes - Plan Summary Plan Summary: I will sign off. Please call with any questions or concerns.
[2019-08-28] MEDS ORDERED: FUROSEMIDE 20 MG TABLET PO SCH (10:00)
[2019-08-28] MEDS: AZITHROMYCIN 250 MG TABLET PO SCH (10:28)
[2019-08-28] MEDS: CARVEDILOL 6.25 MG TABLET PO SCH (10:29)
[2019-08-28] MEDS: ENOXAPARIN SODIUM INJ 120 MG/0.8 ML DISP.SYRIN SUBCUT SCH (10:29)
[2019-08-28] MEDS: LISINOPRIL 10 MG TABLET PO SCH (10:29)
[2019-08-28] MEDS: DOCUSATE SODIUM 100 MG CAPSULE PO SCH ×2 (10:29→18:59)
[2019-08-28] MEDS: MEGESTROL ACETATE 20 MG TABLET PO SCH ×2 (10:33→18:59)
[2019-08-28 18:20] VITALS: BP 136/74
--- NOTE | 2019-08-29 13:11 | PDOC DISCHARGE SUMMARY ---
Impression - Admit/DC Date/PCP Admission Date/Primary Care Provider: 08/25/19 12:54 JASON LEE PA-C Discharge Date: 08/28/19 - Discharge Diagnosis (1) Acute respiratory failure with hypoxia Is this a current diagnosis for this admission?: Yes (2) Acute pulmonary embolism with acute cor pulmonale Is this a current diagnosis for this admission?: Yes (3) Acute congestive heart failure Is this a current diagnosis for this admission?: Yes (4) Hypertension Is this a current diagnosis for this admission?: Yes (5) Hemorrhoids Is this a current diagnosis for this admission?: Yes (6) History of bladder cancer Is this a current diagnosis for this admission?: Yes (7) 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 Please call for appointment) JASON LEE PA-C [Primary Care Provider] - Follow up as needed Prescriptions: Hydrocortisone Acetate [Anusol Hc 25 mg Supp.rect] 25 mg [place] BIDP PRN #10 supp.rect PRN Reason: Carvedilol [Coreg 6.25 mg Tablet] 6.25 mg PO Q12 #60 tablet Furosemide [Lasix 20 mg Tablet] 20 mg PO DAILY #30 tablet Enoxaparin Sodium [Lovenox Inj 120 mg/0.8 ml Disp.syrin] 110 mg SUBCUT Q12 #60 d isp.syrin Oxycodone HCl/Acetaminophen [Percocet 5-325 mg Tablet] 1 tab PO Q4HP PRN #12 tablet PRN Reason: Home Medications: Simvastatin 10 mg PO QHS 02/11/15 Cetirizine HCl [Zyrtec Oral Soln 5 mg/5 ml Udcup] 5 mg PO BID 08/25/19 Cyanocobalamin (Vitamin B-12) [B-12] 6,000 mcg SL BID 08/25/19 Esomeprazole Mag Trihydrate [Nexium] 40 mg PO DAILY 08/25/19 Hydralazine HCl [Apresoline 25 mg Tablet] 25 mg PO BID 08/25/19 Lisinopril [Prinivil 40 mg Tablet] 40 mg PO DAILY 08/25/19 Megestrol Acetate [Megace 20 mg Tablet] 20 mg PO BID 08/25/19 Enoxaparin Sodium [Lovenox Inj 120 mg/0.8 ml Disp.syrin] 110 mg SUBCUT Q12 #60 disp.syrin 08/27/19 Acetaminophen [Tylenol 325 mg Tablet] 325 mg PO Q4HP PRN tablet 08/28/19 Carvedilol [Coreg 6.25 mg Tablet] 6.25 mg PO Q12 #60 tablet 08/28/19 Docusate Sodium [Colace 100 mg Capsule] 100 mg PO BID capsule 08/28/19 Furosemide [Lasix 20 mg Tablet] 20 mg PO DAILY #30 tablet 08/28/19 Hydrocortisone Acetate [Anusol Hc 25 mg Supp.rect] 25 mg NH BIDP PRN #10 supp.rect 08/28/19 Oxycodone HCl/Acetaminophen [Percocet 5-325 mg Tablet] 1 tab PO Q4HP PRN #12 tablet 08/28/19 Simethicone [Mylicon 80 mg Chewable Tablet] 80 mg PO QIDP PRN tab.chew 08/28/19 History of Present Illiness History of Present Illness: Per H&P by Dr. Barajas: JAGRUTI SHEPHERD is a 89 year old male PE on Xarelto, hypertension, bladder cancer, right MCA CVA, dyslipidemia, A. fib, brought to ED by family for evaluation of worsening weakness and dyspnea on exertion. As per family for the last 3 days they have noted this patient has getting progressively weak and short of breath on minimal exertion, denies any PND, orthopnea, or lower extremity edema, In ED he was found to be hypoxic, with elevated BNP hospital was started for acute heart failure. Evaluation CTA chest showed bilateral multiple acute pulmonary emboli with right heart strain based on CT findings. Patient denies any cough, fever, chills, nausea, vomiting, diarrhea, constipation or any urinary symptoms. Patient has decided for his CODE STATUS to be DNR and daughter and son-in-law who are accompanying him agree with his decision. Patient and family were updated about acute bilateral pulmonary PE and they do not want any transfer at this point as patient is DNR and he may not get any invasive procedures if transfer. They would like to continue medical management at this point. Hospital Course Hospital Course: (1) Acute respiratory failure with hypoxia Improved; have been able to wean oxygen to 2 L/min while at rest. A Secondary to acute pulmonary embolus with cor pulmonale. Have made arrangements for patient to receive home oxygen therapy. (2) Acute pulmonary embolism with acute cor pulmonale CTA chest positive for multiple bilateral acute PEs, with possible right heart strain based on CT findings. Echocardiogram revealed LVEF of 60%. The right ventricle and right atrium are moderately dilated. Patient is DNR, does not want any invasive interventions at this point. Declines transfer for evaluation for EKOS. The patient was admitted to [facility] on continuous cardiac telemetry. He is placed on full dose Lovenox. He was supported with supplemental oxygen as above. Pulmonary toilet is encouraged. (3) Acute congestive heart failure Denies any history of CAD, denies any chest pain, mildly elevated troponins likely due to acute PE causing acute CHF. Troponins trended down; no longer following. proBNP trending down. Echocardiogram completed; results as aboe. Continue home dose lisinopril and hydralazine for blood pressure control. Started on carvedilol 6.25 mg twice daily and furosemide 20 mg daily. (4) Hypertension Normotensive on lisinopril, hydralazine, and carvedilol. (5) Hemorrhoids Patient reports history of internal hemorrhoids; improved comfort today. Anusol suppositories bid prn Colace BID. (6) History of bladder cancer Status post surgery. Not on chemotherapy. Follow up with Dr. Agarwal in 2-3 weeks. 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 Denies any acute focal neurological deficit. Continue home medication regiment. Home health nursing, PT/OT services arranged. Physical Exam Vital Signs: Temp Pulse Resp BP Pulse Ox 98.2 F 63 20 136/74 H 97 08/28/19 18:14 08/28/19 18:14 08/28/19 18:14 08/28/19 18:14 08/28/19 18:14 Intake & Output 08/28/19 08/29/19 08/30/19 06:59 06:59 06:59 Intake Total 840 200 Output Total 550 Balance 290 200 General appearance: PRESENT: no acute distress, cooperative, hard of hearing, well-developed, well-nourished - Overweight Head exam: PRESENT: atraumatic, normocephalic Eye exam: PRESENT: conjunctiva pink, EOMI, PERRLA. ABSENT: scleral icterus Ear exam: PRESENT: normal external ear exam Mouth exam: PRESENT: moist, tongue midline Neck exam: ABSENT: carotid bruit, JVD, lymphadenopathy, thyromegaly Respiratory exam: PRESENT: clear to auscultation jose, symmetrical, unlabored. ABSENT: rales, rhonchi, wheezes Cardiovascular exam: PRESENT: RRR, +S1, +S2. ABSENT: diastolic murmur, rubs, systolic murmur Pulses: PRESENT: normal dorsalis pedis pul Vascular exam: PRESENT: normal capillary refill GI/Abdominal exam: PRESENT: normal bowel sounds, soft. ABSENT: distended, guarding, mass, organolmegaly, rebound, tenderness Rectal exam: PRESENT: deferred Extremities exam: PRESENT: full ROM. ABSENT: calf tenderness, clubbing, pedal edema Musculoskeletal exam: PRESENT: ambulatory - With 1 person assist and walker Neurological exam: PRESENT: alert, awake, oriented to person, oriented to place, oriented to time, oriented to situation, CN II-XII grossly intact. ABSENT: motor sensory deficit Psychiatric exam: PRESENT: appropriate affect, normal mood. ABSENT: homicidal ideation, suicidal ideation Skin exam: PRESENT: dry, intact, warm. ABSENT: cyanosis, rash Results Laboratory Results: WBC 11.3 10^3/uL (4.0-10.5) H 08/28/19 04:32 RBC 4.75 10^6/uL (4.35-5.55) 08/28/19 04:32 Hgb 14.0 g/dL (13.5-17.0) 08/28/19 04:32 Hct 42.4 % (37.9-51.0) 08/28/19 04:32 MCV 89 fl (80-97) 08/28/19 04:32 MCH 29.6 pg (27.0-33.4) 08/28/19 04:32 MCHC 33.1 g/dL (32.0-36.0) 08/28/19 04:32 RDW 17.8 % (11.5-14.0) H 08/28/19 04:32 Plt Count 230 10^3/uL (150-450) 08/28/19 04:32 Lymph % (Auto) 13.2 % (13-45) 08/28/19 04:32 [place] % (Auto) 9.2 % (3-13) 08/28/19 04:32 Eos % (Auto) 1.7 % (0-6) 08/28/19 04:32 Baso % (Auto) 0.8 % (0-2) 08/28/19 04:32 Absolute Neuts (auto) 8.5 10^3/uL (1.7-8.2) H 08/28/19 04:32 Absolute Lymphs (auto) 1.5 10^3/uL (0.5-4.7) 08/28/19 04:32 Absolute Monos (auto) 1.0 10^3/uL (0.1-1.4) 08/28/19 04:32 Absolute Eos (auto) 0.2 10^3/uL (0.0-0.6) 08/28/19 04:32 Absolute Basos (auto) 0.1 10^3/uL (0.0-0.2) 08/28/19 04:32 Seg Neutrophils % 75.1 % (42-78) 08/28/19 04:32 PT 16.2 SEC (11.4-15.4) H 08/26/19 03:47 INR 1.29 08/26/19 03:47 Carbonic Acid 0.93 mmol/L (1.05-1.35) L 08/25/19 09:00 HCO3/H2CO3 Ratio 22:1 08/25/19 09:00 ABG pH 7.46 (7.35-7.45) H 08/25/19 09:00 ABG pCO2 31.0 mmHg (35-45) L 08/25/19 09:00 ABG pO2 105.4 mmHg (80-100) H 08/25/19 09:00 ABG HCO3 21.3 mmol/L (20-24) 08/25/19 09:00 ABG Total CO2 22.3 mmol/L (23-27) L 08/25/19 09:00 ABG O2 Saturation 98.1 % (94-98) H 08/25/19 09:00 ABG Base Excess -1.6 mmol/L 08/25/19 09:00 FiO2 2L 08/25/19 09:00 Sodium 139.6 mmol/L (137-145) 08/27/19 05:33 Potassium 3.7 mmol/L (3.6-5.0) 08/27/19 05:33 Chloride 104 mmol/L (98-107) 08/27/19 05:33 Carbon Dioxide 26 mmol/L (22-30) 08/27/19 05:33 Anion Gap 10 (5-19) 08/27/19 05:33 BUN 19 mg/dL (7-20) 08/27/19 05:33 Creatinine 1.01 mg/dL (0.52-1.25) 08/27/19 05:33 Est GFR ( Amer) > 60 (>60) 08/27/19 05:33 Est GFR (MDRD) Non-Af > 60 (>60) 08/27/19 05:33 Glucose 107 mg/dL (75-110) 08/27/19 05:33 Calcium 8.9 mg/dL (8.4-10.2) 08/27/19 05:33 Total Bilirubin 1.0 mg/dL (0.2-1.3) 08/25/19 06:40 Direct Bilirubin 0.1 mg/dL (0.0-0.4) 08/25/19 06:40 Neonat Total Bilirubin Not Reportable 08/25/19 06:40 Neonat Direct Bilirubin Not Reportable 08/25/19 06:40 Neonat Indirect Bili Not Reportable 08/25/19 06:40 AST 28 U/L (17-59) 08/25/19 06:40 ALT 27 U/L (<50) 08/25/19 06:40 Alkaline Phosphatase 84 U/L (38-126) 08/25/19 06:40 Creatine Kinase 53 U/L (55-170) L 08/25/19 06:40 CK-MB (CK-2) 2.46 ng/mL (<4.55) 08/25/19 06:40 Troponin I 0.035 ng/mL 08/26/19 03:47 NT-Pro-B Natriuret Pep 4120 pg/mL (<450) H 08/27/19 05:33 Total Protein 6.5 g/dL (6.3-8.2) 08/25/19 06:40 Albumin 3.6 g/dL (3.5-5.0) 08/25/19 06:40 TSH 5.80 uIU/mL (0.47-4.68) H 08/25/19 06:40 Free T4 1.39 ng/dL (0.78-2.19) 08/25/19 17:04 Free T3 pg/mL 3.70 pg/mL (2.77-5.27) 08/25/19 17:04 Urine Color YELLOW 08/28/19 06:20 Urine Appearance CLEAR 08/28/19 06:20 Urine pH 5.0 (5.0-9.0) 08/28/19 06:20 Ur Specific [place] 1.020 08/28/19 06:20 Urine Protein 30 mg/dL (NEGATIVE) H 08/28/19 06:20 Urine Glucose (UA) NEGATIVE mg/dL (NEGATIVE) 08/28/19 06:20 Urine Ketones NEGATIVE mg/dL (NEGATIVE) 08/28/19 06:20 Urine Blood NEGATIVE (NEGATIVE) 08/28/19 06:20 Urine Nitrite NEGATIVE (NEGATIVE) 08/28/19 06:20 Urine Bilirubin NEGATIVE (NEGATIVE) 08/28/19 06:20 Urine Urobilinogen NEGATIVE mg/dL (<2.0) 08/28/19 06:20 Ur Leukocyte Esterase NEGATIVE (NEGATIVE) 08/28/19 06:20 Urine WBC (Auto) 11 /HPF 08/28/19 06:20 Urine RBC (Auto) 4 /HPF 08/28/19 06:20 U Hyaline Cast (Auto) 3 /LPF 08/28/19 06:20 Squamous Epi Cells Auto <1 /HPF 08/28/19 06:20 Urine Mucus (Auto) FEW /LPF 08/28/19 06:20 Urine Ascorbic Acid 40 (NEGATIVE) H 08/28/19 06:20 08/25/19 08/25/19 08/25/19 06:40 06:40 10:26 CK-MB (CK-2) 2.46 Troponin I 0.049 0.069 NT-Pro-B Natriuret Pep 5950 H 08/25/19 08/25/19 08/26/19 17:04 21:44 03:47 CK-MB (CK-2) Troponin I 0.046 0.037 0.035 NT-Pro-B Natriuret Pep 08/27/19 05:33 CK-MB (CK-2) Troponin I NT-Pro-B Natriuret Pep 4120 H Impressions: Chest X-Ray 08/25/19 07:51 IMPRESSION: Cardiomegaly without a superimposed acute cardiopulmonary process. Chest/Abdomen CTA 08/25/19 15:21 IMPRESSION: 1. Acute bilateral pulmonary emboli that involve both the right and left pulmonary arteries and proximal segmental branches to the right upper, right lower, right middle, and left upper and left lower lobes. In addition, there is evidence of right heart strain based on the flattened appearance of the interventricular septum and the reflux of the contrast into the IVC. 2. Ovoid opacity in the right lower lobe, adjacent to the pleural surface is nonspecific and could represent an infarct or and area of round atelectasis. Attention on follow-up is recommended. 3. Small right pleural effusion and calcified bilateral pleural plaques Plan Plan of Treatment: The patient is discharged to home with home health nursing, physical therapy/Occupational Therapy, aide, and older adult social work specialist services. Arrangements have been made for the patient to self-pay for supplemental oxygen via nasal cannula at 2 L/min. He is to follow-up with his primary care provider within [address] Agarwal within 2 to 3 weeks. Continue full dose Lovenox indefinitely Xarelto therapy. Take other medications as prescribed. Return to the emergency department as needed for concerning symptoms. Time Spent: Greater than 30 Minutes Stroke Is this a Stroke Patient?: No Acute Heart Failure - Is this a Heart Failure Patient?: Yes Documentation of LVEF assessment?: Yes LVEF < 40%?: No- if no continue to question #3 3. Anticoagulant therapy for permanect/persistent/paraoxysmal Afib or Aflutter: Yes
== END 2019-08-28 18:58 | disposition home health service (06) | DRG 175 ==
LOC: ER 06:34 → EH 12:54 → 3S 23:46
PROVIDERS: ADMIT Internal Medicine; ATTEND Internal Medicine
PROC: 5A09357 Assistance with Respiratory Ventilation, Less than 24 Consecutive Hours, Continuous Positive Airway Pressure (ICD-10-PCS; principal; 2019-08-25)
DX: I26.09 Other pulmonary embolism with acute cor pulmonale (principal); I50.41 Acute combined systolic (congestive) and diastolic (congestive) heart failure; J96.21 Acute and chronic respiratory failure with hypoxia; I69.354 Hemiplegia and hemiparesis following cerebral infarction affecting left non-dominant side; Z66 Do not resuscitate; I11.0 Hypertensive heart disease with heart failure; I48.91 Unspecified atrial fibrillation; E78.5 Hyperlipidemia, unspecified; K64.9 Unspecified hemorrhoids; Z85.51 Personal history of malignant neoplasm of bladder; Z86.711 Personal history of pulmonary embolism; Z79.02 Long term (current) use of antithrombotics/antiplatelets; Z79.899 Other long term (current) drug therapy; Z90.49 Acquired absence of other specified parts of digestive tract; M19.90 Unspecified osteoarthritis, unspecified site
CPT/HCPCS: 36415; 71045; 71275; 80048; 80053; 81001; 81240; 81241; 82550; 82553; 82803; 83880; 84439; 84443; 84481; 84484; 85025; 85597; 85598; 85610; 85613; 85730; 85732; 86146; 86147; 86148; 86849; 87040; 93005; 93010; 93306; 94660; 94799; 96374; 99285; J1650; J1940; J3490

== ENCOUNTER → 2019-09-14 | Outpatient (CLI) | payer MEDICARE, BC ==
[2019-09-14 13:59] LABS: ANION GAP 10 (5-19); BLOOD UREA NITROGEN 23 mg/dL (7-20); CALCIUM 9.5 mg/dL (8.4-10.2); CARBON DIOXIDE 26 mmol/L (22-30); CHLORIDE 101 mmol/L (98-107); GLUCOSE 96 mg/dL (75-110); POTASSIUM 4.7 mmol/L (3.6-5.0)
== END ==
LOC: OD 12:39
PROVIDERS: ATTEND Physician Assistant Medical
DX: I10 Essential (primary) hypertension (principal); E87.6 Hypokalemia; R60.9 Edema, unspecified; R11.0 Nausea
CPT/HCPCS: 36415; 80048